=== PATIENT | male | born 1980 | race Caucasian/White ===

== ENCOUNTER → 2019-12-30 | Outpatient (CLI) | payer OTHER ==
[2019-12-30 18:34] LABS: Prolactin 8.3 ng/mL (2.1-17.7)
[2019-12-30 18:35] LABS: Follicle Stimulating Hormone 5.6 mIU/mL; Luteinizing Hormone 9.5 mIU/mL
== END | disposition home or self-care (01) ==
LOC: LABWHC1 09:34
PROVIDERS: ATTEND Urology
DX: E29.1 Testicular hypofunction (principal)
CPT/HCPCS: 36415; 83001; 83002; 84146; 84403

== ENCOUNTER 2024-07-04 17:08 | Observation (INO) | payer OTHER ==
[2024-07-04 17:43] LABS: Glucose,Whole Blood 115 mg/dL (70-110)
[2024-07-04] MEDS: SODIUM CHLORIDE 0.9% 1,000 ML IV STA (17:50)
[2024-07-04 17:52] LABS: Basophils # (A) 0.1 k/uL (0-0.2); Basophils % (A) 0 %; Eosinophils # (A) 0.1 k/uL (0-0.7); Eosinophils % (A) 1 %; HCT 45.7 % (39.0-53.0); HGB 15.3 gm/dL (13.0-17.5); Lymphocytes # (A) 1.6 k/uL (1.0-4.8); Lymphocytes % (A) 11 %; MCH 31.6 pg (25.0-35.0); MCHC 33.5 g/dL (31.0-37.0); MCV 94.2 fL (80.0-100.0); Mean Platelet Volume 7.1; Monocytes # (A) 0.7 k/uL (0-1.0); Monocytes % (A) 5 %; Neutrophils # (A) 11.4 k/uL (1.3-7.7); Neutrophils % (A) 82 %; Platelet Count 363 k/uL (150-450); RBC 4.85 m/uL (4.30-5.90); RDW 13.7 % (11.5-15.5)
--- NOTE | 2024-07-04 17:54 | XR ---
EXAMINATION TYPE: XR shoulder complete RT, XR clavicle RT DATE OF EXAM: 07/04/2024 CLINICAL HISTORY: Trauma with pain TECHNIQUE: Three views of the right shoulder are obtained. 2 views right clavicle. COMPARISON: None. FINDINGS: Acute comminuted displaced fracture through the mid to distal portion of the right clavicle is seen. There is approximately 2.0 cm inferior displacement of the largest distal fracture fragmen t as there are few tiny free ossific fragments also identified. Some impaction is present. Sternoclav icular joint is likely maintained. There is no additional acute fracture/dislocation evident in the r ight shoulder. The acromioclavicular and glenohumeral joint spaces appear within normal limits. The visualized ribs show old fracture of the posterior lateral right sixth rib. There is low lung volume s with patchy right basilar opacity. IMPRESSION: There is acute comminuted displaced fracture through mid to distal portion of the right clavicle. [facility], , 07/04/2024 5:52 PM
[2024-07-04 18:04] LABS: Partial Thromboplastin Time 22.1 sec (22.0-30.0)
--- NOTE | 2024-07-04 18:06 | XR ---
EXAMINATION TYPE: XR chest 1V portable DATE OF EXAM: 07/04/2024 COMPARISON: NONE CLINICAL INDICATION: Male, 44 years old with history of trauma; pain after trauma. TECHNIQUE: Single frontal view of the chest is obtained. FINDINGS: There is no focal air space opacity, pleural effusion, or pneumothorax seen. The cardiac silhouette size is upper limits of normal. Acute comminuted displaced fracture of right clavicle is s een. There is subacute or old fracture of the posterolateral right sixth rib. Overlying EKG leads are present. IMPRESSION: No acute cardiopulmonary process. [facility], , 07/04/2024 6:04 PM
--- NOTE | 2024-07-04 18:06 | XR ---
EXAMINATION TYPE: XR pelvis AP view DATE OF EXAM: 07/04/2024 CLINICAL HISTORY: Trauma TECHNIQUE: 2 portable frontal views of the pelvis are obtained. COMPARISON: None. FINDINGS: There is no acute displaced fracture evident in the pelvis. The hip and sacroiliac joints appear symmetric. Pubic symphysis is intact. The overlying soft tissue appears unremarkable. IMPRESSION: There is no acute fracture or dislocation in the pelvis. [facility], , 07/04/2024 6:03 PM
[2024-07-04 18:11] LABS: ALT 37 U/L (4-49); AST 39 U/L (17-59); African American GFR (CKD) >90 (>60 ml/min/1.73 sqM); Albumin 5.4 g/dL (3.5-5.0); Alcohol <10 mg/dL; Alkaline Phosphatase 74 U/L (38-126); Anion Gap 14 mmol/L; Blood Urea Nitrogen 16 mg/dL (9-20); Carbon Dioxide 23 mmol/L (22-30); Chloride 101 mmol/L (98-107); Glucose 112 mg/dL (74-99); Non-African American GFR(CKD) >90 (>60 ml/min/1.73 sqM); Potassium 4.4 mmol/L (3.5-5.1); Sodium 138 mmol/L (137-145); Total Bilirubin 0.8 mg/dL (0.2-1.3); Total Protein 8.2 g/dL (6.3-8.2)
--- NOTE | 2024-07-04 18:18 | CT ---
EXAMINATION TYPE: CT brain cspine wo con DATE OF EXAM: 07/04/2024 COMPARISON: NONE HISTORY: Priority 2 trauma. Fell 12-15 feet off of ladder. CT DLP: Combined DLP of 2737.9 mGycm. Automated Exposure Control for Dose Reduction was Utilized. TECHNIQUE: CT scan of the head and cervical spine are performed without contrast. FINDINGS: There is no acute intracranial hemorrhage, mass effect, or midline shift identified. The ventricles and sulci are within normal limits in size. Gil-white matter differentiation is maintain ed. The calvarium is intact. The globes are intact and the visualized sinuses are clear. Cervical spine is visualized in its entirety from C1 through upper thoracic levels and demonstrates s atisfactory alignment without evidence of acute fracture or dislocation. Prevertebral soft tissue ap pears within normal limits. The C1-C2 articulation is within normal limits on the coronal images. V ertebral body heights and disc space heights are maintained. Spinal canal is preserved. Axial images show some multilevel uncovertebral facet degenerative changes bilaterally. Thyroid gland appears with in normal limits. Lung apices grossly clear. There is air within the left subclavian vein presumed re lated to attempted IV access posterior to the left proximal clavicle. IMPRESSION: 1. There is no acute fracture or dislocation evident in the cervical spine. 2. No acute intracranial hemorrhage or midline shift is seen. [facility], , 07/04/2024 6:15 PM
--- NOTE | 2024-07-04 18:35 | CT ---
EXAMINATION TYPE: CT ChestAbdPelvis w con, CT thor lumbar spine w con DATE OF EXAM: 07/04/2024 COMPARISON: None. HISTORY: Priority 2 trauma. Fell 12-15 feet off of ladder. CT DLP: Combined DLP of 2737.9 mGycm. Automated Exposure Control for Dose Reduction was Utilized. CONTRAST: CT scan of the thorax, abdomen and pelvis is performed with IV Contrast, patient injected with 100 ml (accession [id number]), 100 ml (accession [id number]) mL of Isovue 300. CT thoracic and lumbar spine wi th contrast. FINDINGS: LUNGS: Minimal right posterior lateral apical pneumothorax axial image 17 with tiny sliver of air. Ti ny focus of 7 mm nodular opacity sagittal image 38 corresponding to axial image 28 and the peripheral right upper lobe. Left lung is clear. Tiny focus of deep subcutaneous air in the right pleural chest wall axial image 27. No adjacent acute displaced rib fracture clearly seen. Old healed fracture of t he posterior lateral right sixth rib is noted. MEDIASTINUM: No cardiomegaly or pericardial effusion. Other: Small subareolar gynecomastia bilaterally is seen. LIVER/GB: No significant abnormality is appreciated. PANCREAS: No significant abnormality is seen. SPLEEN: No significant abnormality is seen. ADRENALS: No significant abnormality is seen. KIDNEYS: Simple central parapelvic cyst in the left kidney is noted. BOWEL: No significant abnormality is seen. GENITAL ORGANS: Upper limits of normal in size prostate gland. LYMPH NODES: No greater than 1cm abdominal or pelvic lymph nodes are appreciated. OSSEOUS STRUCTURES: Acute comminuted displaced fracture through middle to distal portion of the right clavicle. OTHER: No significant additional abnormality is seen. THORACIC AND LUMBAR SPINE: Slight scoliotic curvature in the lumbar spine. There are 5 lumbar-type ve rtebra. No acute displaced fracture in the thoracic or lumbar spine. Vertebral bodies and disc space heights relatively well maintained. Spinal canal is preserved. IMPRESSION: 1. Minimal right-sided pneumothorax estimated at or under 1%. Tiny subcentimeter focus of pulmonary c ontusion injury right peripheral lung. 2. Acute comminuted displaced fracture through the right clavicle. 3. No acute post traumatic finding in the abdomen or pelvis. 4. No acute displaced fracture in the thoracic or lumbar spine. [facility], , 07/04/2024 6:33 PM
[2024-07-04] MEDS: ACETAMINOPHEN TAB 500 MG TAB PO STA (18:55)
[2024-07-04] MEDS ORDERED: NALOXONE 0.4 MG/ML 1 ML VIAL IV PRN (19:26)
[2024-07-04] MEDS ORDERED: ONDANSETRON 4 MG/2 ML VIAL IVP PRN (19:26)
--- NOTE | 2024-07-04 19:29 | ED ---
General Adult HPI - General Chief complaint: Fall Stated complaint: fall, 15 ft Time Seen by Provider: 07/04/24 17:37 Source: patient, RN notes reviewed, old records reviewed Mode of arrival: wheelchair Limitations: physical limitation - History of Present Illness Initial comments: Patient is a 44-year-old male who presents as a level 2 trauma activation. Patient was on a ladder working on a roof when he slipped as it was snowing and fell backwards onto grass. Landed on his right shoulder and right chest wall. Unknown if he lost consciousness, states it is a possibility, although only briefly. States he was able to drive himself home and then was brought to the ER by friends for further evaluation. States fall occurred approximately an hour prior to arrival. Is not on blood thinners. No significant past medical history. Presents for further evaluation at this time. Denies any shortness of breath. Only complaint is right shoulder and clavicle pain. States he has diffuse right chest wall pain as well.Patient fell approximately 12-15 feet. Meets criteria for level 2 trauma activation. - Related Data Home Medications Medication Instructions Recorded Confirmed tadalafiL 5 mg PO DAILY 07/04/24 07/04/24 Allergies Allergy/AdvReac Type Severity Reaction Status Date / Time barley Allergy Unknown Verified 07/04/24 19:31 Review of Systems ROS Statement: Those systems with pertinent positive or pertinent negative responses have been documented in the HPI. Review of Systems: CONST: Denies fever EYES: Denies blurry vision ENT: Denies nasal congestion C/V: Denies Chest pain RESP: Denies shortness of breath GI: Denies abdominal pain : Denies dysuria SKIN: Denies rash. MSK: Endorses right clavicle and shoulder pain. NEURO: Denies headache ROS Other: All systems not noted in ROS Statement are negative. Past Medical History Past Medical History: No Reported History Past Surgical History: No Surgical Hx Reported, Orthopedic Surgery Smoking Status: Never smoker Past Alcohol Use History: Daily, Heavy Past Drug Use History: None Reported General Exam - General Exam Comments Initial Comments: General: Appears in mild to moderate distress secondary to right clavicle pain. HEAD: Normal with no signs of head trauma. Negative Villalba sign. No raccoon eyes. EYES: PERRLA, EOMI, conjunctiva normal, no discharge. Pupils are 3 mm and equal bilaterally. ENT: Hearing grossly intact, normal oropharynx. Cervical collar in place. Trachea is midline. RESPIRATORY: Clear breath sounds bilaterally. No wheezes, rales, or rhonchi. No hypoxia. No respiratory distress. C/V: Regular rate and rhythm. S1 and S2 auscultated, no edema, peripheral pulses 2+ and intact throughout ABD: Abd is soft, nontender, nondistended EXT: Obvious deformity of the right clavicle. Mild skin tenting but no open fracture evidence. No significant midline cervical, thoracic, lumbar spine tenderness to palpation. Palpation of the right chest wall. No obvious deformities of the right chest wall. Right upper quadrant discomfort which seems to be radiation pain from the right chest wall. No significant step-offs or deformities of the spine. Pelvis stable. SKIN: No rashes or lesions observed on exposed skin. NEURO: Alert and oriented x 4. Cranial nerves II-XII intact. No focal sensory or strength deficits. GCS of 15. Limitations: physical limitation Course Vital Signs 07/04/24 07/04/24 07/04/24 17:21 19:55 21:06 Temperature 98.3 F 99.0 F 99.0 F Pulse Rate 74 80 67 Pulse Rate [ Pulse Oximetery ] Respiratory 20 20 18 Rate Blood Pressure 156/94 142/86 143/90 Blood Pressure [Left Arm] O2 Sat by Pulse 97 99 99 Oximetry 07/04/24 21:39 Temperature 97.8 F Pulse Rate Pulse Rate [ 73 Pulse Oximetery ] Respiratory 18 Rate Blood Pressure Blood Pressure 147/94 [Left Arm] O2 Sat by Pulse 100 Oximetry Medical Decision Making - Medical Decision Making Was pt. sent in by a medical professional or institution (, PA, BLOCK STACKER, urgent care, hospital, or detention...) When possible be specific @ -No Did you speak to anyone other than the patient for history (EMS, parent, family, police, friend...)? What history was obtained from this source @ -No Did you review nursing and triage notes (agree or disagree)? Why? @ -I reviewed and agree with nursing and triage notes Were old charts reviewed (outside hosp., previous admission, EMS record, old EKG, old radiological studies, urgent care reports/EKG's, detention records)? Report findings @ -No old charts were reviewed Differential Diagnosis (chest pain, altered mental status, abdominal pain women, abdominal pain men, vaginal bleeding, weakness, fever, dyspnea, syncope, headache, dizziness, GI bleed, back pain, seizure, CVA, palpatations, mental hea lth, musculoskeletal)? @ -Differential Musculoskeletal Muscular strain, contusion, ligament sprain, fracture, arthritis, septic arthritis, bursitis, cellulitis, muscle spasm, nerve compression, DVT, arterial occlusion, herpes zoster, electrolyte abnormality, tumor.... This is not meant to be in all inclusive list EKG interpreted by me (3pts min.). @ -As above X-rays interpreted by me (1pt min.). @ -Chest x-ray reveals no obvious acute cardiopulmonary process. Pelvis x-ray reveals no obvious acute injury. Clavicle and shoulder x-ray reveals the midshaft comminuted displaced right clavicle fracture. CT interpreted by me (1pt min.). @ -CT brain and C-spine negative for any obvious acute injuries. CT thoracic and lumbar spine reveals no obvious acute traumatic injuries. CT chest abdomen pelvis reveals the clavicle fracture, as well as the trace right pneumothorax less than 1% as well as very slight pulmonary contusion on the right. U/S interpreted by me (1pt. min.). @ -None done What testing was considered but not performed or refused? (CT, X-rays, U/S, labs)? Why? @ -None What meds were considered but not given or refused? Why? @ -None Did you discuss the management of the patient with other professionals (professionals i.e. , PA, BLOCK STACKER, lab, RT, psych nurse, social service manager, locker room attendant, teacher, agricultural technical officer, casework manager)? Give summary @ -Discussed management with Dr. Barba, the on-call trauma surgeon who is in agreement plan for workup as well as admission under his service once results return. Contacted [facility], Dr. Barraza regarding medical consult. Was smoking cessation discussed for >3mins.? @ -No Was critical care preformed (if so, how long)? @ -Yes, 31 minutes Were there social determinants of health that impacted care today? How? (Homelessness, low income, unemployed, alcoholism, drug addiction, transportation, low edu. Level, literacy, decrease access to med. care, alf, rehab)? @ -No Was there de-escalation of care discussed even if they declined (Discuss DNR or withdrawal of care, Hospice)? DNR status @ -No What co-morbidities impacted this encounter? (DM, HTN, Smoking, COPD, CAD, Cancer, CVA, ARF, Chemo, Hep., AIDS, mental health diagnosis, sleep apnea, morbid obesity)? @ -None Was patient admitted / discharged? Hospital course, mention meds given and route, prescriptions, significant lab abnormalities, going to OR and other pertinent info. @ -Presents as a fall from 12 to 15 feet off a [facility] followed. Vitals are within acceptable limits. Cervical collar already in place. We will obtain CT imaging, chest x-ray, as well as trauma labs. Patient has no obvious injuries other than the right clavicle fracture that appears apparent. Patient declines analgesia medications but eventually does except Tylenol. Patient will be given a 1 L fluid bolus. He was in agreement this plan. Patient does have skin tenting of the clavicle fracture however he did not break through. Is still closed fracture. Spoke With trauma surgeon Dr. Barba who was in agreement the plan. Laboratory studies returned remarkable for a leukocytosis of 14 which is likely reactive. Remainder the workup unremarkable. Urine studies still pending. X- ray is remarkable for a right clavicle fracture. CT imaging remarkable for the right clavicle fracture as well as a very small right-sided pneumothorax less than 1%. No respiratory distress.No indication for chest tube placement at this time. Discussed results with the patient. Cervical collar cleared. Patient be admitted to trauma surgery. Dr. Barba accepted the admission. Orthopedics will be consulted for the clavicle fracture. Medicine will be consulted for medical management. Patient was placed on nasal cannula oxygen at this time for the pneumothorax but he is in no respiratory distress. Continues to not want IV pain medications and we will continue with Tylenol and Toradol as needed. He was in agreement this plan. Undiagnosed new problem with uncertain prognosis? @ -No Drug Therapy requiring intensive monitoring for toxicity (Heparin, Nitro, Insulin, Cardizem)? @ -No Were any procedures done? @ -No Diagnosis/symptom? @ -Fall, right clavicle fracture, trace pneumothorax Acute, or Chronic, or Acute on Chronic? @ -Acute Uncomplicated (without systemic symptoms) or Complicated (systemic symptoms)? @ -Complicated Side effects of treatment? @ -No Exacerbation, Progression, or Severe Exacerbation? @ -No Poses a threat to life or bodily function? How? (Chest pain, USA, AR, pneumonia, PE, COPD, DKA, ARF, appy, cholecystitis, CVA, Diverticulitis, Homicidal, Suicidal, threat to staff... and all critical care pts) @ -Potentially, yes - Lab Data Result diagrams: 07/04/24 17:37 07/04/24 17:37 Lab Results 07/04/24 07/04/24 07/04/24 Range/Units 17:37 17:37 17:37 WBC 14.0 H (3.8-10.6) k/uL RBC 4.85 (4.30-5.90) m/uL Hgb 15.3 (13.0-17.5) gm/dL Hct 45.7 (39.0-53.0) % MCV 94.2 (80.0-100.0) fL MCH 31.6 (25.0-35.0) pg MCHC 33.5 (31.0-37.0) g/dL RDW 13.7 (11.5-15.5) % Plt Count 363 (150-450) k/uL MPV 7.1 Neutrophils % 82 % Lymphocytes % 11 % Monocytes % 5 % Eosinophils % 1 % Basophils % 0 % Neutrophils # 11.4 H (1.3-7.7) k/uL Lymphocytes # 1.6 (1.0-4.8) k/uL Monocytes # 0.7 (0-1.0) k/uL Eosinophils # 0.1 (0-0.7) k/uL Basophils # 0.1 (0-0.2) k/uL PT 11.0 (10.0-12.5) sec INR 1.0 (<1.2) APTT 22.1 (22.0-30.0) sec Sodium 138 (137-145) mmol/L Potassium 4.4 (3.5-5.1) mmol/L Chloride 101 (98-107) mmol/L Carbon Dioxide 23 (22-30) mmol/L Anion Gap 14 mmol/L BUN 16 (9-20) mg/dL Creatinine 0.74 (0.66-1.25) mg/dL Est GFR (CKD-EPI)AfAm >90 (>60 ml/min/1.73 sqM) Est GFR (CKD-EPI)NonAf >90 (>60 ml/min/1.73 sqM) Glucose 112 H (74-99) mg/dL POC Glucose (mg/dL) (70-110) mg/dL POC Glu Anthropology And Archeology Instructor ID Calcium 10.0 (8.4-10.2) mg/dL Total Bilirubin 0.8 (0.2-1.3) mg/dL AST 39 (17-59) U/L ALT 37 (4-49) U/L Alkaline Phosphatase 74 (38-126) U/L Total Protein 8.2 (6.3-8.2) g/dL Albumin 5.4 H (3.5-5.0) g/dL Serum Alcohol <10 mg/dL Blood Type Blood Type Confirm Blood Type Recheck Bld Type Recheck Status Antibody Screen Spec Expiration Date 07/04/24 07/04/24 07/04/24 Range/Units 17:37 17:42 17:42 WBC (3.8-10.6) k/uL RBC (4.30-5.90) m/uL Hgb (13.0-17.5) gm/dL Hct (39.0-53.0) % MCV (80.0-100.0) fL MCH (25.0-35.0) pg MCHC (31.0-37.0) g/dL RDW (11.5-15.5) % Plt Count (150-450) k/uL MPV Neutrophils % % Lymphocytes % % Monocytes % % Eosinophils % % Basophils % % Neutrophils # (1.3-7.7) k/uL Lymphocytes # (1.0-4.8) k/uL Monocytes # (0-1.0) k/uL Eosinophils # (0-0.7) k/uL Basophils # (0-0.2) k/uL PT (10.0-12.5) sec INR (<1.2) APTT (22.0-30.0) sec Sodium (137-145) mmol/L Potassium (3.5-5.1) mmol/L Chloride (98-107) mmol/L Carbon Dioxide (22-30) mmol/L Anion Gap mmol/L BUN (9-20) mg/dL Creatinine (0.66-1.25) mg/dL Est GFR (CKD-EPI)AfAm (>60 ml/min/1.73 sqM) Est GFR (CKD-EPI)NonAf (>60 ml/min/1.73 sqM) Glucose (74-99) mg/dL POC Glucose (mg/dL) 115 H (70-110) mg/dL POC Glu [employer]ology And Archeology Instructor ID Jack Segura Calcium (8.4-10.2) mg/dL Total Bilirubin (0.2-1.3) mg/dL AST (17-59) U/L ALT (4-49) U/L Alkaline Phosphatase (38-126) U/L Total Protein (6.3-8.2) g/dL Albumin (3.5-5.0) g/dL Serum Alcohol mg/dL Blood Type O Positive Blood Type Confirm O Positive Blood Type Recheck No Previous Record Bld Type Recheck Status CABO Indicated Antibody Screen NEGATIVE Spec Expiration Date 07/07/20242336 - EKG Data -: EKG Interpreted by Me EKG Comments: 12-lead Electrocardiogram Interpretation Note EKG was reviewed and interpreted by myself. 12-lead ECG performed at 1815 is interpreted by me as revealing normal sinus rhythm at a rate of 73 beats per minute. [place] is normal. [place] interval is 176 ms, QRS duration is 104 ms, QTc is 412 ms.. There were no ST or T wave abnormalities to suggest myocardial ischemia or injury. R wave progression across the precordium was satisfactory. By my interpretation this EKG is non-diagnostic for acute ischemia. Critical Care Time Critical Care Time: Yes Total Critical Care Time: 31 Disposition Clinical Impression: Fall, Clavicle fracture, Acute pneumothorax Disposition: ADMITTED IP TO THIS HOSP Condition: Stable Time of Disposition: 19:00
[2024-07-04] MEDS: SODIUM CHLORIDE 0.9% 1,000 ML IV SCH (20:05)
[2024-07-05] MEDS: KETOROLAC 15 MG/ML 1 ML VIAL IVP PRN (00:16)
[2024-07-05 00:26] LABS: Amphetamine Screen,Urine Not Detected (NotDetected); Barbiturate Screen,Urine Not Detected (NotDetected); Benzodiazepines Screen,Urine Not Detected (NotDetected); Cocaine Screen,Urine Not Detected (NotDetected); Methadone Screen, Urine Not Detected (NotDetected); Opiate Screen,Urine Not Detected (NotDetected); Oxycodone Screen, Urine Not Detected (NotDetected); Phencyclidine Screen,Urine Not Detected (NotDetected); Tricyclic Antidepressant,Urine Not Detected (NotDetected); Urn Cannabinoid Scrn Not Detected (NotDetected)
--- NOTE | 2024-07-05 03:37 | P.HPIM ---
History of Present Illness H&P Date: 07/04/24 Patient is a 44-year-old male with PMH of alcohol abuse who presents to the emergency room after a fall. The patient reports that he was working on a house putting up siding when he was on a ladder roughly 15 feet up on the ground when he slipped and fell backwards onto grass. He landed on his right shoulder and right chest and may have lost consciousness. He was brought into the emergency room with imaging revealed a right clavicular displaced fracture along with a minimal right-sided pneumothorax at or under 1%. Head/cervical spine CT was unremarkable. The patient was admitted under the trauma service and medicine was consulted. The patient reports minimal pain at the time of interview. He denies any chronic medical conditions. Does report intermittent heavy alcohol use, mostly in social situations on the weekends. He denies ever being a daily drinker. Notes that he drinks up to 30 beers a week but mostly on 2 to 3 days of the week. He denies experiencing chest discomfort, shortness of breath, fever, chills, cough, nausea, vomiting, abdominal pain, diarrhea. Laboratory evaluation in the emergency room was remarkable for leukocytosis of 14.0, glucose 112, with urine toxicology negative and serum alcohol level less than 10. ED documentation reviewed and case discussed with ED provider. Review of systems: Pertinent positives and negatives as discussed in HPI, a complete review of systems was performed and all other systems are negative. Physical examination: Vital signs reviewed General: non toxic, patient in right arm sling no distress, appears at stated age, normal weight Derm: no unusual rashes/lesions, warm Head: atraumatic, normocephalic, symmetric Eyes: EOMI, no lid lag, anicteric sclera, pupils equal round reactive to light ENT: Nose and ears atraumatic Neck: No cervical lymphadenopathy, trachea midline, supple Mouth: no lip lesion, mucus membranes moist Cardiovascular: S1S2 reg, no murmur, positive dorsalis pedis pulse bilateral, no edema Lungs: CTA bilateral, no rhonchi, no rales, no accessory muscle use Abdominal: soft, nontender to palpation, no guarding Ext: muscle strength 5 out of 5 in all 4 extremities grossly, no gross muscle atrophy, no contractures, Neuro: CN II-XI grossly intact, no gross focal neuro deficits Psych: Alert, oriented, appropriate affect Assessment: Alcohol abuse Leukocytosis, no signs of active infection at this time, likely due to acute stressor Traumatic clavicular fracture Imaging: Imaging revealed a right clavicular displaced fracture along with a minimal right-sided pneumothorax at or under 1%. Head/cervical spine CT was unremarkable. Data Review: Laboratory evaluation in the emergency room was remarkable for leukocytosis of 14.0, glucose 112, with urine toxicology negative and serum alcohol level less than 10. Plan: Continue to monitor CIWA score Advised on importance of cessation from alcohol abuse Monitor CBC C/w IVFs with NS 75 mL/hr Defer management of pain control and DVT prophylaxis to the primary surgery service We appreciate this opportunity to be involved in this patient's care. We will follow the patient with you. For any further questions, please not hesitate to contact the [facility] inpatient team. Past Medical History Past Medical History: No Reported History History of Any Multi-Drug Resistant Organisms: None Reported Past Surgical History: No Surgical Hx Reported, Orthopedic Surgery Additional Past Surgical History / Comment(s): Bone graph, 2 screws in finger, bilateral wrist surgeries years ago. Past Anesthesia/Blood Transfusion Reactions: No Reported Reaction Smoking Status: Never smoker Past Alcohol Use History: Daily, Heavy Past Drug Use History: None Reported - Past Family History Father Family Medical History: Myocardial Infarction ([place]) Additional Family Medical History / Comment(s): Dad had [place] in mid 40s and almost per patient. Medications and Allergies Home Medications Medication Instructions Recorded Confirmed Type tadalafiL 5 mg PO DAILY 07/04/24 07/04/24 History Allergies Allergy/AdvReac Type Severity Reaction Status Date / Time barley Allergy Unknown Verified 07/04/24 19:31 Physical Exam Vitals: Vital Signs Temp Pulse Pulse Resp BP BP Pulse Ox 07/05/24 00:00 98.1 F 66 18 118/64 96 07/04/24 21:39 97.8 F 73 18 147/94 100 07/04/24 21:06 99.0 F 67 18 143/90 99 07/04/24 19:55 99.0 F 80 20 142/86 99 07/04/24 17:21 98.3 F 74 20 156/94 97 Intake and Output 07/04/24 07/04/24 07/05/24 14:59 22:59 06:59 Output Total 400 Balance -400 Output: Urine 400 Other: Voiding Method Toilet # Voids 1 Weight 70.307 kg Results CBC & Chem 7: 07/04/24 17:37 07/04/24 17:37 Labs: Abnormal Lab Results - Last 24 Hours (Table) 07/04/24 07/04/24 07/04/24 Range/Units 17:37 17:37 17:42 WBC 14.0 H (3.8-10.6) k/uL Neutrophils # 11.4 H (1.3-7.7) k/uL Glucose 112 H (74-99) mg/dL POC Glucose (mg/dL) 115 H (70-110) mg/dL Plasma Lactic Acid Isaías (0.7-2.0) mmol/L Albumin 5.4 H (3.5-5.0) g/dL 07/04/24 Range/Units 21:05 WBC (3.8-10.6) k/uL Neutrophils # (1.3-7.7) k/uL Glucose (74-99) mg/dL POC Glucose (mg/dL) (70-110) mg/dL Plasma Lactic Acid Isaías 0.6 L (0.7-2.0) mmol/L Albumin (3.5-5.0) g/dL Thrombosis Risk Factor Assmnt - Choose All That Apply Any of the Below Risk Factors Present?: Yes Each Factor Represents 1 point: Age 41-60 years Other Risk Factors: No Other congenital or acquired thrombophilia - If yes, enter type in comment: No Thrombosis Risk Factor Assessment Total Risk Factor Score: 1 Thrombosis Risk Factor Assessment Level: Low Risk
[2024-07-05] MEDS: ACETAMINOPHEN TAB 325 MG TAB PO PRN (04:30)
[2024-07-05 07:25] LABS: Basophils % (A) 1 %; Eosinophils # (A) 0.1 k/uL (0-0.7); Eosinophils % (A) 1 %; HCT 41.9 % (39.0-53.0); HGB 14.1 gm/dL (13.0-17.5); Lymphocytes # (A) 1.8 k/uL (1.0-4.8); Lymphocytes % (A) 21 %; MCHC 33.7 g/dL (31.0-37.0); MCV 95.1 fL (80.0-100.0); Monocytes # (A) 0.8 k/uL (0-1.0); Monocytes % (A) 9 %; Neutrophils # (A) 5.8 k/uL (1.3-7.7); Neutrophils % (A) 67 %; Platelet Count 293 k/uL (150-450); RBC 4.41 m/uL (4.30-5.90); RDW 13.7 % (11.5-15.5); WBC 8.6 k/uL (3.8-10.6)
[2024-07-05 07:41] LABS: ALT 27 U/L (4-49); AST 25 U/L (17-59); African American GFR (CKD) >90 (>60 ml/min/1.73 sqM); Albumin 4.1 g/dL (3.5-5.0); Alkaline Phosphatase 56 U/L (38-126); Anion Gap 11 mmol/L; Blood Urea Nitrogen 11 mg/dL (9-20); Carbon Dioxide 21 mmol/L (22-30); Chloride 107 mmol/L (98-107); Glucose 87 mg/dL (74-99); Non-African American GFR(CKD) >90 (>60 ml/min/1.73 sqM); Potassium 4.1 mmol/L (3.5-5.1); Sodium 139 mmol/L (137-145); Total Protein 6.3 g/dL (6.3-8.2)
--- NOTE | 2024-07-05 07:42 | XR ---
EXAMINATION TYPE: XR chest 2V DATE OF EXAM: 07/05/2024 6:45 AM COMPARISON: Chest x-ray and CT from one day earlier. CLINICAL INDICATION: Male, 44 years old with history of trace right pneumothorax from trauma, TECHNIQUE: Frontal and lateral views of the chest are obtained. FINDINGS: Trace right-sided pneumothorax on CT not clearly seen on plain film. Lungs remain clear. T he cardiac silhouette size is within normal limits. Old fracture posterior lateral right sixth rib re demonstrated. Acute comminuted displaced fracture of right clavicle again seen. IMPRESSION: As above. [facility], , 07/05/2024 7:39 AM
[2024-07-05] MEDS: THIAMINE 100 MG TAB PO SCH (08:39)
[2024-07-05] MEDS ORDERED: LORazepam 0.5 MG TAB PO PRN (09:16)
[2024-07-05] MEDS ORDERED: LORazepam 2 MG/ML INJ IV PRN ×3 (09:16)
[2024-07-05] MEDS ORDERED: LORazepam 1 MG TAB PO PRN (09:16)
[2024-07-05] MEDS ORDERED: HYDROcodone/APAP 5-325MG 1 EACH TAB PO PRN (09:21)
--- NOTE | 2024-07-05 09:25 | P.PN ---
Subjective Progress Note Date: 07/05/24 Hospital course: Patient is a 44-year-old male with a past medical history of alcohol abuse. He presented to the emergency department on 07/04/2024 secondary to fall. Patient was reportedly working on a house putting up siding when he fell from ladder approximately 15 feet onto the ground. Patient reported landing on his right side injuring his right shoulder and chest and is unsure on whether or not he lost consciousness. Upon arrival to our facility, patient underwent evaluation in the emergency department. Vital signs upon arrival show blood pressure 156/94, heart rate 74, respiratory rate 20, temp 98.3 F, and SpO2 of 97% on room air. CT head negative for acute intracranial process. CT cervical spine showing no acute fracture or dislocation. Chest x-ray negative for acute cardiopulmonary process. Pelvis x-ray negative for acute process. X-ray right shoulder showing acute comminuted displaced fracture throughout the mid to distal portion of the right clavicle. Panoramic CT chest/abdomen/pelvis showing a minimal right-sided pneumothorax estimated at or under 1% with tiny subcentimeter focus of pulmonary contusion to right peripheral lung, acute comminuted displaced fractures of the right clavicle, negative for acute traumatic finding in abdomen or pelvis and no acute displaced fracture of the thoracic or lumbar spine. Labs completed and reviewed. CBC showing leukocytosis with WBC count of 14.0. BMP unremarkable. Liver profile normal findings. Serum alcohol level was less than 10 and urine drug screen was negative. Patient admitted under trauma services and we were consulted for medical management throughout hospitalization. Physical exam: Patient seen and fully evaluated at bedside. Vital signs reviewed and stable. General: Nontoxic, no distress and appears stated age. Derm: Skin warm and dry, normal coloration for ethnicity. Patient with ecchymosis right lateral neck and ecchymosis mild swelling to right clavicular region of right shoulder Head: Atraumatic, normocephalic and symmetric. Eyes: EOM's intact, no lid lag, and anicteric sclera Mouth: no lip lesions, mucus membranes moist Cardiovascular: regular rate and rhythm with normal S1S2, no murmur, positive posterior tibial pulses bilaterally, and cap refill < 2 seconds. Lungs: Respirations even, regular, and unlabored on room air. Lungs CTA bilaterally, no rhonchi, no rales, no wheezing, and no accessory muscle usage. Abdominal: soft, nontender to palpation, no guarding, no appreciable organomega ly Ext: No gross muscle atrophy, no edema, no contractures. Movement and sensation intact. Right arm in sling. Neuro: Speech clear, face symmetrical and CN II-XII grossly intact with no noted focal neuro deficits Psych: Alert and oriented to person, place, time, and situation. Appropriate and pleasant affect. Assessment and Plan of Care: Traumatic fall Right sided displaced clavicular fracture -Admitted under trauma surgery team -Orthopedic surgery consulted for comminuted displaced right clavicular fracture, discussed with orthopedic PA stating plans for surgical intervention on Sunday -Neurochecks every 4 hours secondary to unclear loss of consciousness -Symptomatic care and pain management Pulmonary contusion Small < 1% right sided pneumothorax -Consult placed to pulmonology. -Monitor pulse oximetry -Encourage use of incentive spirometer 10-15 times hourly while awake. Alcohol abuse, binge drinking behaviors -Order placed for monitoring of CIWA scores and patient to be medicated with Ativan 0.5 mg every 4 hours as needed for CIWA score of 4-5, Ativan 1 mg every 4 hours for CIWA score of 6-7, Ativan 2 mg every 3 hours CIWA score of 8-9, and Ativan 2 mg every 2 hours forr CIWA score of 10 or greater. -Continuous IV hydration. -Thiamine 100 mg daily, and Multivitamin daily, and Folate 1 mg daily -Seizure, fall, aspiration, and elopement precautions in place. -Urine drug screen was negative -Continued close monitoring of electrolytes and replace as needed. -Telemetry monitoring. Data and imaging reviewed: -CT head negative for acute intracranial process. -CT cervical spine showing no acute fracture or dislocation. -Chest x-ray negative for acute cardiopulmonary process. -Pelvis x-ray negative for acute process. -X-ray right shoulder showing acute comminuted displaced fracture throughout the mid to distal portion of the right clavicle. -Panoramic CT chest/abdomen/pelvis showing a minimal right-sided pneumothorax estimated at or under 1% with tiny subcentimeter focus of pulmonary contusion to right peripheral lung, acute comminuted displaced fractures of the right clavicle, negative for acute traumatic finding in abdomen or pelvis and no acute displaced fracture of the thoracic or lumbar spine. -Labs completed and reviewed. CBC unremarkable with WBC count of 8.6, hemoglobin of 14.1, and platelet count of 293. BMP showing mild hypocarbia with bicarb of 21 otherwise normal findings. Blood glucose 87. Liver profile unremarkable. -Vital signs reviewed. Blood pressure 130/78, heart rate 73, respiratory rate 15, temp 98.2 F, and SpO2 of 97% on room air. Thank you for allowing us to participate in the care of this pleasant patient. Do not hesitate to contact us with questions. Someone can be reached from the [facility] hospitalist group all hours of the day at [phone] or via e-Tag. Patient was seen independently by Nurse Pracitioner. This document was prepared using [employer] dictation software. Please allow for errors in staking press operator, while rare they do occur. Luis E Galvan NP rendered care for this patient independently, reviewed the findings and plan as documented in the note above and agree with plan. I did not physically speak with or examine the patient on this date. Objective - Vital Signs Vital signs: Vital Signs Temp 98.2 F 07/05/24 04:00 Pulse 73 07/05/24 04:00 Resp 15 07/05/24 04:00 BP 130/78 07/05/24 04:00 Pulse Ox 97 07/05/24 04:00 FiO2 Intake & Output 07/04/24 07/05/24 07/05/24 18:59 06:59 18:59 Intake Total 1440 Output Total 400 Balance 1040 Weight 70.307 kg 73.8 kg Intake: Intake, IV Titration 900 Amount Sodium Chloride 0.9% 1, 900 000 ml @ 75 mls/hr IV . [id number] ALVARADO Rx#:[id number] Oral 540 Output: Urine 400 Other: Voiding Method Toilet # Voids 1 - Labs CBC & Chem 7: 07/05/24 06:49 07/05/24 06:49 Labs: Abnormal Lab Results - Last 24 Hours (Table) 07/04/24 07/04/24 07/04/24 Range/Units 17:37 17:37 17:42 WBC 14.0 H (3.8-10.6) k/uL Neutrophils # 11.4 H (1.3-7.7) k/uL Carbon Dioxide (22-30) mmol/L Glucose 112 H (74-99) mg/dL POC Glucose (mg/dL) 115 H (70-110) mg/dL Plasma Lactic Acid Isaías (0.7-2.0) mmol/L Albumin 5.4 H (3.5-5.0) g/dL 07/04/24 07/05/24 Range/Units 21:05 06:49 WBC (3.8-10.6) k/uL Neutrophils # (1.3-7.7) k/uL Carbon Dioxide 21 L (22-30) mmol/L Glucose (74-99) mg/dL POC Glucose (mg/dL) (70-110) mg/dL Plasma Lactic Acid Isaías 0.6 L (0.7-2.0) mmol/L Albumin (3.5-5.0) g/dL
[2024-07-05] MEDS: NON FORMULARY DRUG (Tadalafil [Tadalafil] 5 MG Tablet) PO SCH (10:22)
--- NOTE | 2024-07-05 10:38 | P.CNOR ---
History of Present Illness - [facility] Consult date: 07/05/24 Consult reason: fracture (Right clavicle) History of present illness: Patient is a 44-year-old male who presented as a level 2 trauma activation. Patient was on a ladder working on a roof when he slipped as it was snowing and fell backwards onto grass. Landed on his right shoulder and right chest wall. Unknown if he lost consciousness, states it is a possibility, although only briefly. States he was able to drive himself home and then was brought to the ER by friends for further evaluation. States fall occurred approximately an hour prior to arrival. Is not on blood thinners. No significant past medical history. Presents for further evaluation at this time. Denies any shortness of breath. Only complaint is right shoulder and clavicle pain. States he has diffuse right chest wall pain as well.Patient fell approximately 12-15 feet. Meets criteria for level 2 trauma activation. The patient is self-employed. He is currently complaining of no other orthopedic injuries. He has had no neck, back, other upper or lower extremity pain aside from the right shoulder. We are consulted for orthopedic evaluation of the right clavicle fracture. Past Medical History Past Medical History: No Reported History History of Any Multi-Drug Resistant Organisms: None Reported Past Surgical History: No Surgical Hx Reported, Orthopedic Surgery Additional Past Surgical History / Comment(s): Bone graph, 2 screws in finger, bilateral wrist surgeries years ago. Past Anesthesia/Blood Transfusion Reactions: No Reported Reaction Smoking Status: Never smoker Past Alcohol Use History: Daily, Heavy Past Drug Use History: None Reported - Past Family History Father Family Medical History: Myocardial Infarction ([place]) Additional Family Medical History / Comment(s): Dad had [place] in mid 40s and almost per patient. Medications and Allergies Home Medications Medication Instructions Recorded Confirmed Type tadalafiL 5 mg PO DAILY 07/04/24 07/04/24 History Allergies Allergy/AdvReac Type Severity Reaction Status Date / Time barley Allergy Unknown Verified 07/04/24 19:31 Physical Examination This is a pleasant 44-year-old male in no acute distress. He is alert and oriented x 3. Exam of the head neck revealed no deformity. He has full cervical spine motion without difficulty or pain. No tenderness with palpation about the cervical spine or paraspinal musculature. Exam the upper extremities reveals ecchymosis and very slight skin tenting about the clavicle on the right. There are no areas of puncture or skin breakdown. No areas of erythema. There is tenderness to palpation about the clavicle. Range of motion of the right shoulder is not tested today. He has full elbow, wrist and finger motion bilaterally. Exam of the chest shows some tenderness about the right sided chest wall. His chest seems to expand symmetrically with respirations. Exam of the lower extremities reveals no obvious deformity. He is up ambulating independently without difficulty or pain. Neurovascular status to the lower extremities is intact. Results X-rays and CT of the right clavicle reveal a comminuted displaced fracture of the midshaft clavicle. No other bony abnormalities noted. Other diagnostic imaging: -CT head negative for acute intracranial process. -CT cervical spine showing no acute fracture or dislocation. -Chest x-ray negative for acute cardiopulmonary process. -Pelvis x-ray negative for acute process. -Panoramic CT chest/abdomen/pelvis showing a minimal right-sided pneumothorax estimated at or under 1% with tiny subcentimeter focus of pulmonary contusion to right peripheral lung, acute comminuted displaced fractures of the right clavicle, negative for acute traumatic finding in abdomen or pelvis and no acute displaced fracture of the thoracic or lumbar spine. -Labs completed and reviewed. CBC unremarkable with WBC count of 8.6, hemoglobin of 14.1, and platelet count of 293. BMP showing mild hypocarbia with bicarb of 21 otherwise normal findings. Blood glucose 87. Liver profile unrema rkable. -Vital signs reviewed. Blood pressure 130/78, heart rate 73, respiratory rate 15, temp 98.2 F, and SpO2 of 97% on room air. - Labs Labs: Abnormal Lab Results - Last 24 Hours (Table) 07/04/24 07/04/24 07/04/24 Range/Units 17:37 17:37 17:42 WBC 14.0 H (3.8-10.6) k/uL Neutrophils # 11.4 H (1.3-7.7) k/uL Carbon Dioxide (22-30) mmol/L Glucose 112 H (74-99) mg/dL POC Glucose (mg/dL) 115 H (70-110) mg/dL Plasma Lactic Acid Isaías (0.7-2.0) mmol/L Albumin 5.4 H (3.5-5.0) g/dL 07/04/24 07/05/24 Range/Units 21:05 06:49 WBC (3.8-10.6) k/uL Neutrophils # (1.3-7.7) k/uL Carbon Dioxide 21 L (22-30) mmol/L Glucose (74-99) mg/dL POC Glucose (mg/dL) (70-110) mg/dL Plasma Lactic Acid Isaías 0.6 L (0.7-2.0) mmol/L Albumin (3.5-5.0) g/dL H & H 07/04/24 07/05/24 Range/Units 17:37 06:49 Hgb 15.3 14.1 (13.0-17.5) gm/dL Hct 45.7 41.9 (39.0-53.0) % Coagulation 07/04/24 Range/Units 17:37 INR 1.0 (<1.2) Result Diagrams: 07/05/24 06:49 07/05/24 06:49 Assessment and Plan (1) Acute pneumothorax Current Visit: Yes Status: Acute Code(s): J93.83 - OTHER PNEUMOTHORAX SNOMED Code(s): 00223063 (2) Clavicle fracture Current Visit: Yes Status: Acute Code(s): S42.009A - FRACTURE OF UNSP PART OF UNSP CLAVICLE, INIT FOR CLOS FX SNOMED Code(s): 25060540 (3) Fall Current Visit: Yes Status: Acute Code(s): W19.XXXA - UNSPECIFIED FALL, INITIAL ENCOUNTER SNOMED Code(s): 0799598 Plan: The clinical and radiographic findings are discussed with the patient. We discussed surgical fixation of the right clavicle. The patient may possibly be discharged to home. If he is discharged he will need to follow-up in our office on Sunday with Dr. Mauricio Ny for surgical scheduling. If the patient remains inpatient we will plan for surgery on Sunday for open reduction internal fixation of the right clavicle. We will continue to follow throughout his inpatient stay.
--- NOTE | 2024-07-05 12:49 | P.GSHP ---
History of Present Illness H&P Date: 07/04/24 Patient is a 44-year-old male who presents as a level 2 trauma activation. Patient was on a ladder working on a roof when he slipped as it was snowing and fell backwards onto grass. Landed on his right shoulder and right chest wall. Unknown if he lost consciousness, states it is a possibility, although only briefly. States he was able to drive himself home and then was brought to the ER by friends for further evaluation. States fall occurred approximately an hour prior to arrival. Is not on blood thinners. No significant past medical history. Presents for further evaluation at this time. Denies any shortness of breath. Only complaint is right shoulder and clavicle pain. States he has diffuse right chest wall pain as well.Patient fell approximately 12-15 feet. Meets criteria for level 2 trauma activation. Imaging revealed clavicle fracture and small right sided pneumothorax. Patient is not having any respiratory distress. Review of Systems ROS Statement: Those systems with pertinent positive or pertinent negative responses have been documented in the HPI. Review of Systems: CONST: Denies fever EYES: Denies blurry vision ENT: Denies nasal congestion C/V: Denies Chest pain RESP: Denies shortness of breath GI: Denies abdominal pain : Denies dysuria SKIN: Denies rash. MSK: Endorses right clavicle and shoulder pain. NEURO: Denies headache ROS Other: All systems not noted in ROS Statement are negative. Past Medical History Past Medical History: No Reported History Past Surgical History: No Surgical Hx Reported, Orthopedic Surgery Smoking Status: Never smoker Past Alcohol Use History: Daily, Heavy Past Drug Use History: None Reported General Exam General: Appears in mild to moderate distress secondary to right clavicle pain. HEAD: Normal with no signs of head trauma. Negative Villalba sign. No raccoon eyes. EYES: PERRLA, EOMI, conjunctiva normal, no discharge. Pupils are 3 mm and equal bilaterally. ENT: Hearing grossly intact, normal oropharynx. Cervical collar in place. Trachea is midline. RESPIRATORY: Clear breath sounds bilaterally. No wheezes, rales, or rhonchi. No hypoxia. No respiratory distress. C/V: Regular rate and rhythm. S1 and S2 auscultated, no edema, peripheral pulses 2+ and intact throughout ABD: Abd is soft, nontender, nondistended EXT: Obvious deformity of the right clavicle. Mild skin tenting but no open fracture evidence. No significant midline cervical, thoracic, lumbar spine tenderness to palpation. Palpation of the right chest wall. No obvious deformities of the right chest wall. Right upper quadrant discomfort which seems to be radiation pain from the right chest wall. No significant step-offs or deformities of the spine. Pelvis stable. SKIN: No rashes or lesions observed on exposed skin. NEURO: Alert and oriented x 4. Cranial nerves II-XII intact. No focal sensory or strength deficits. GCS of 15. 44 year old male with fall and clavicle fracture and small right sided PTX -imaging reviewed -Admit to Trauma -Regular Diet -AM CXR -Ortho recs -Medicine recs for medical management -Pulm recs for possible pulmonary contusion -Pain Control Casey Barba [facility] [phone] Past Medical History Past Medical History: No Reported History History of Any Multi-Drug Resistant Organisms: None Reported Past Surgical History: No Surgical Hx Reported, Orthopedic Surgery Additional Past Surgical History / Comment(s): Bone graph, 2 screws in finger, bilateral wrist surgeries years ago. Past Anesthesia/Blood Transfusion Reactions: No Reported Reaction Smoking Status: Never smoker Past Alcohol Use History: Daily, Heavy Past Drug Use History: None Reported - Past Family History Father Family Medical History: Myocardial Infarction ([place]) Additional Family Medical History / Comment(s): Dad had [place] in mid 40s and almost per patient. Medications and Allergies Home Medications Medication Instructions Recorded Confirmed Type tadalafiL 5 mg PO DAILY 07/04/24 07/04/24 History Allergies Allergy/AdvReac Type Severity Reaction Status Date / Time barley Allergy Unknown Verified 07/04/24 19:31 Surgical - Exam Vital Signs Temp Pulse Resp BP Pulse Ox 98.3 F 74 20 156/94 97 07/04/24 17:21 07/04/24 17:21 07/04/24 17:21 07/04/24 17:21 07/04/24 17:21 Results - Labs 07/05/24 06:49 07/05/24 06:49 Abnormal Lab Results - Last 24 Hours (Table) 07/04/24 07/04/24 07/04/24 Range/Units 17:37 17:37 17:42 WBC 14.0 H (3.8-10.6) k/uL Neutrophils # 11.4 H (1.3-7.7) k/uL Carbon Dioxide (22-30) mmol/L Glucose 112 H (74-99) mg/dL POC Glucose (mg/dL) 115 H (70-110) mg/dL Plasma Lactic Acid Isaías (0.7-2.0) mmol/L Albumin 5.4 H (3.5-5.0) g/dL 07/04/24 07/05/24 Range/Units 21:05 06:49 WBC (3.8-10.6) k/uL Neutrophils # (1.3-7.7) k/uL Carbon Dioxide 21 L (22-30) mmol/L Glucose (74-99) mg/dL POC Glucose (mg/dL) (70-110) mg/dL Plasma Lactic Acid Isaías 0.6 L (0.7-2.0) mmol/L Albumin (3.5-5.0) g/dL Diabetes panel 07/04/24 07/05/24 Range/Units 17:37 06:49 Sodium 138 139 (137-145) mmol/L Potassium 4.4 4.1 (3.5-5.1) mmol/L Chloride 101 107 (98-107) mmol/L Carbon Dioxide 23 21 L (22-30) mmol/L BUN 16 11 (9-20) mg/dL Creatinine 0.74 0.66 (0.66-1.25) mg/dL Glucose 112 H 87 (74-99) mg/dL Calcium 10.0 9.0 (8.4-10.2) mg/dL AST 39 25 (17-59) U/L ALT 37 27 (4-49) U/L Alkaline Phosphatase 74 56 (38-126) U/L Total Protein 8.2 6.3 (6.3-8.2) g/dL Albumin 5.4 H 4.1 (3.5-5.0) g/dL Calcium panel 07/04/24 07/05/24 Range/Units 17:37 06:49 Calcium 10.0 9.0 (8.4-10.2) mg/dL Albumin 5.4 H 4.1 (3.5-5.0) g/dL Pituitary panel 07/04/24 07/05/24 Range/Units 17:37 06:49 Sodium 138 139 (137-145) mmol/L Potassium 4.4 4.1 (3.5-5.1) mmol/L Chloride 101 107 (98-107) mmol/L Carbon Dioxide 23 21 L (22-30) mmol/L BUN 16 11 (9-20) mg/dL Creatinine 0.74 0.66 (0.66-1.25) mg/dL Glucose 112 H 87 (74-99) mg/dL Calcium 10.0 9.0 (8.4-10.2) mg/dL Adrenal panel 07/04/24 07/05/24 Range/Units 17:37 06:49 Sodium 138 139 (137-145) mmol/L Potassium 4.4 4.1 (3.5-5.1) mmol/L Chloride 101 107 (98-107) mmol/L Carbon Dioxide 23 21 L (22-30) mmol/L BUN 16 11 (9-20) mg/dL Creatinine 0.74 0.66 (0.66-1.25) mg/dL Glucose 112 H 87 (74-99) mg/dL Calcium 10.0 9.0 (8.4-10.2) mg/dL Total Bilirubin 0.8 1.0 (0.2-1.3) mg/dL AST 39 25 (17-59) U/L ALT 37 27 (4-49) U/L Alkaline Phosphatase 74 56 (38-126) U/L Total Protein 8.2 6.3 (6.3-8.2) g/dL Albumin 5.4 H 4.1 (3.5-5.0) g/dL
--- NOTE | 2024-07-05 13:02 | P.CNPUL ---
History of Present Illness Consult date: 07/05/24 Requesting physician: Casey Barba Reason for consult: pneumothorax, abnormal CXR/CT, other Chief complaint: Status post fall. History of present illness: Pulmonary consult dated July 05, 2024. 44-year-old male who presented to the emergency department, suffering a fall. The patient apparently was up on a ladder, 10 or 15 feet up, and fell, landing on his back, on the grass. He landed on his right shoulder, and right chest. It is not clear as to whether or not he lost consciousness. He was able to drive himself home, and then was brought to the ER by one of his friends. The patient was evaluated, with multiple x-rays, was found to have a right clavicle fracture, and a very tiny right-sided pneumothorax. The rest of his x-rays were negative. We were asked to see him because of the trauma. He is on room air. He is getting saline at 75 cc an hour. He is being followed by general surgery. He apparently is scheduled to have surgery on his clavicle, next Sunday. He has no major medical problems. The only medication he takes at home is tadalafil. Labs include a white count 8.6, hemoglobin 14.1, hematocrit 41.9, and a platelet count of 293,000. Sodium 139, potassium 4.1, chlorides 107, CO2 21, BUN 11, creatinine 0.66. Glucose 87. The rest of his labs look okay. Drug screen was negative. Alcohol level was less than 10. The patient CT scan shows a very tiny 1 to 2% right apical pneumothorax. Review of Systems REVIEW OF SYSTEMS: CONSTITUTIONAL: [Negative.] NEUROLOGIC: [ Negative.] HEENT: [ Negative.] CARDIAC: [Negative.] PULMONARY: [Negative.] GI: [Negative.] : [Negative.] RHEUMATOLOGIC: Right shoulder pain. IMMUNOLOGIC: [ Negative.] ENDOCRINE: [Negative. ] DERMATOLOGIC: [Negative.] Past Medical History Past Medical History: No Reported History History of Any Multi-Drug Resistant Organisms: None Reported Past Surgical History: No Surgical Hx Reported, Orthopedic Surgery Additional Past Surgical History / Comment(s): Bone graph, 2 screws in finger, bilateral wrist surgeries years ago. Past Anesthesia/Blood Transfusion Reactions: No Reported Reaction Smoking Status: Never smoker Past Alcohol Use History: Daily, Heavy Past Drug Use History: None Reported - Past Family History Father Family Medical History: Myocardial Infarction ([place]) Additional Family Medical History / Comment(s): Dad had [place] in mid 40s and almost per patient. Medications and Allergies Home Medications Medication Instructions Recorded Confirmed Type tadalafiL 5 mg PO DAILY 07/04/24 07/04/24 History Allergies Allergy/AdvReac Type Severity Reaction Status Date / Time barley Allergy Unknown Verified 07/04/24 19:31 Physical Exam Osteopathic Statement: *. No significant issues noted on an osteopathic st ructural exam other than those noted in the History and Physical/Consult. Vitals: Vital Signs Temp Pulse Pulse Pulse Resp BP BP 07/05/24 08:35 98.1 F 68 16 116/74 07/05/24 04:00 98.2 F 73 15 130/78 07/05/24 00:00 98.1 F 66 18 118/64 07/04/24 21:39 97.8 F 73 18 147/94 07/04/24 21:06 99.0 F 67 18 143/90 07/04/24 19:55 99.0 F 80 20 142/86 07/04/24 17:21 98.3 F 74 20 156/94 Pulse Ox 07/05/24 08:35 96 07/05/24 04:00 97 07/05/24 00:00 96 07/04/24 21:39 100 07/04/24 21:06 99 07/04/24 19:55 99 07/04/24 17:21 97 Intake and Output 07/04/24 07/05/24 07/05/24 22:59 06:59 14:59 Intake Total 1440 180 Output Total 400 Balance 1040 180 Intake: Intake, IV Titration 900 Amount Sodium Chloride 0.9% 1, 900 000 ml @ 75 mls/hr IV . [id number] [facility] Rx#:[id number] Oral 540 180 Output: Urine 400 Other: Voiding Method Toilet Toilet # Voids 1 Weight 70.307 kg 73.8 kg No acute distress, oriented 3. Currently not on any oxygen. HEENT examination is grossly unremarkable. Mucous membranes are moist. No oral lesions. Neck supple. Full range of motion. No adenopathy thyromegaly or neck vein distention. Cardiovascular examination reveals regular rhythm rate. S1-S2 normal. No S3 or S4. No discernible murmur noted. Lungs reveal clear breath sounds. Breath sounds are equal bilaterally. No adventitious lung sounds including wheezes rhonchi or crackles. Abdomen soft bowel sounds are heard. No masses or tenderness. Extremities revealed the right arm to be in a sling. Skin is without rash or lesion. Neurologic examination is brief but nonfocal. Results - Laboratory Findings CBC and BMP: 07/05/24 06:49 07/05/24 06:49 PT/INR, D-dimer PT 11.0 sec (10.0-12.5) 07/04/24 17:37 INR 1.0 (<1.2) 07/04/24 17:37 Abnormal lab findings: Abnormal Labs 07/04/24 07/04/24 07/04/24 17:37 17:37 17:42 WBC 14.0 H Neutrophils # 11.4 H Carbon Dioxide Glucose 112 H POC Glucose (mg/dL) 115 H Plasma Lactic Acid Isaías Albumin 5.4 H 07/04/24 07/05/24 21:05 06:49 WBC Neutrophils # Carbon Dioxide 21 L Glucose POC Glucose (mg/dL) Plasma Lactic Acid Isaías 0.6 L Albumin - Diagnostic Findings Chest x-ray: image reviewed CT scan - chest: image reviewed Assessment and Plan Assessment: S/P fall, with a fractured right clavicle, possible pulmonary contusion, and a very tiny right sided pneumothorax. No other major medical problems. Plan: Plan dated July 05, 2024. The patient apparently is going to have surgery, on his right clavicle, on Sunday. From the pulmonary standpoint, he is stable. He is a non-smoker. He denies any pulmonary issues. He is currently on room air. Saturations are excellent. The CT scan reveals a very tiny right apical pneumothorax. He is ge tting saline at 75 cc an hour. Labs, x-rays, and all medications are reviewed. We do recommend that the patient use the incentive spirometer, every hour while awake. We will continue to follow. Time with Patient: Greater than 30
--- NOTE | 2024-07-06 00:39 | P.PN ---
Progress Note - Text Progress Note Date: 07/05/24 No acute events overnight. Patient denies chest pain and SOB. Pain is controlled. General: Appears in mild to moderate distress secondary to right clavicle pain. HEAD: Normal with no signs of head trauma. Negative Villalba sign. No raccoon eyes. EYES: PERRLA, EOMI, conjunctiva normal, no discharge. Pupils are 3 mm and equal bilaterally. ENT: Hearing grossly intact, normal oropharynx. Cervical collar in place. Trachea is midline. RESPIRATORY: Clear breath sounds bilaterally. No wheezes, rales, or rhonchi. No hypoxia. No respiratory distress. C/V: Regular rate and rhythm. S1 and S2 auscultated, no edema, peripheral pulses 2+ and intact throughout ABD: Abd is soft, nontender, nondistended EXT: Obvious deformity of the right clavicle. Mild skin tenting but no open fracture evidence. No significant midline cervical, thoracic, lumbar spine tenderness to palpation. Palpation of the right chest wall. No obvious deformities of the right chest wall. Right upper quadrant discomfort which seems to be radiation pain from the right chest wall. No significant step-offs or deformities of the spine. Pelvis stable. SKIN: No rashes or lesions observed on exposed skin. NEURO: Alert and oriented x 4. Cranial nerves II-XII intact. No focal sensory or strength deficits. GCS of 15. 44 year old male with fall and clavicle fracture and small right sided PTX -Regular Diet -AM CXR reviewed which shows trace PTX -Ortho recs -AM CXR ordered -Medicine recs for medical management -Pulm recs for possible pulmonary contusion -Pain Control Casey Barba DO [facility] [phone]
[2024-07-06 07:26] LABS: Basophils % (A) 0 %; Eosinophils # (A) 0.1 k/uL (0-0.7); Eosinophils % (A) 2 %; HCT 39.6 % (39.0-53.0); HGB 13.4 gm/dL (13.0-17.5); Lymphocytes # (A) 1.7 k/uL (1.0-4.8); Lymphocytes % (A) 22 %; MCH 32.1 pg (25.0-35.0); MCHC 33.8 g/dL (31.0-37.0); MCV 95.1 fL (80.0-100.0); Monocytes # (A) 0.8 k/uL (0-1.0); Monocytes % (A) 11 %; Neutrophils # (A) 4.8 k/uL (1.3-7.7); Neutrophils % (A) 63 %; Platelet Count 267 k/uL (150-450); RBC 4.17 m/uL (4.30-5.90); RDW 13.1 % (11.5-15.5); WBC 7.6 k/uL (3.8-10.6)
--- NOTE | 2024-07-06 07:26 | XR ---
EXAMINATION TYPE: XR chest 2V DATE OF EXAM: 07/06/2024 CLINICAL HISTORY: Pneumothorax TECHNIQUE: Frontal and lateral views of the chest are obtained. COMPARISON: Chest x-ray from one day earlier and older studies. FINDINGS: Lungs remain grossly clear. The cardiac silhouette size is stable and within normal limits. Old fracture posterior lateral right sixth rib redemonstrated. Acute comminuted displaced fracture o f right clavicle again seen. IMPRESSION: As above. Trace right-sided pneumothorax on CT not clearly seen on plain films similar t o prior. [facility], , 07/06/2024 7:24 AM
[2024-07-06 07:51] LABS: ALT 23 U/L (4-49); AST 18 U/L (17-59); African American GFR (CKD) >90 (>60 ml/min/1.73 sqM); Albumin 3.9 g/dL (3.5-5.0); Alkaline Phosphatase 50 U/L (38-126); Anion Gap 5 mmol/L; Blood Urea Nitrogen 11 mg/dL (9-20); Calcium 9.1 mg/dL (8.4-10.2); Carbon Dioxide 26 mmol/L (22-30); Chloride 108 mmol/L (98-107); Glucose 97 mg/dL (74-99); Magnesium 2.1 mg/dL (1.6-2.3); Non-African American GFR(CKD) >90 (>60 ml/min/1.73 sqM); Potassium 4.2 mmol/L (3.5-5.1); Sodium 139 mmol/L (137-145); Total Bilirubin 0.8 mg/dL (0.2-1.3); Total Protein 6.1 g/dL (6.3-8.2)
[2024-07-06] MEDS: FOLIC ACID 1 MG TAB PO SCH (09:29)
[2024-07-06] MEDS: MULTIVITAMINS, THERA 1 EACH TAB PO SCH (09:29)
--- NOTE | 2024-07-06 09:40 | P.PN ---
Subjective Progress Note Date: 07/06/24 Principal diagnosis: Status post fall 12 to 15 feet. Comminuted right clavicle fracture. Small pneumothorax right. Possible pulmonary contusion. Patient is a 44-year-old male who presented as a level 2 trauma activation. Patient was on a ladder working on a roof when he slipped as it was snowing and fell backwards onto grass. Landed on his right shoulder and right chest wall. Unknown if he lost consciousness, states it is a possibility, although only briefly. States he was able to drive himself home and then was brought to the ER by friends for further evaluation. States fall occurred approximately an hour prior to arrival. Is not on blood thinners. No significant past medical history. Presents for further evaluation at this time. Denies any shortness of breath. Only complaint is right shoulder and clavicle pain. States he has diffuse right chest wall pain as well.Patient fell approximately 12-15 feet. Meets criteria for level 2 trauma activation. The patient is self-employed. He is currently complaining of no other orthopedic injuries. He has had no neck, back, other upper or lower extremity pain aside from the right shoulder. We are consulted for orthopedic evaluation of the right clavicle fracture. 07/06/2024: The patient has no new complaints or concerns today. His pain is fairly well-managed. He has maintained the sling. Objective - Vital Signs Vital signs: Vital Signs Temp 98.1 F 07/06/24 04:00 Pulse 64 07/06/24 04:00 Resp 18 07/06/24 04:00 BP 121/74 07/06/24 04:00 Pulse Ox 98 07/06/24 04:00 FiO2 Intake & Output 07/05/24 07/06/24 07/06/24 18:59 06:59 18:59 Intake Total 360 Balance 360 Weight 73.3 kg Intake: Oral 360 Other: Voiding Method Toilet Toilet # Voids 2 2 - Exam Arm sling is in place. There is less skin tenting today over the fracture. There is mild ecchymosis to the region of the clavicle. No open wounds noted. Shoulder range of motion not tested today. Full wrist and finger motion without difficulty or pain. Neurovascular status to the upper extremity is intact. - Labs CBC & Chem 7: 07/06/24 07:03 07/06/24 07:03 Labs: Abnormal Lab Results - Last 24 Hours (Table) 07/06/24 07/06/24 Range/Units 07:03 07:03 RBC 4.17 L (4.30-5.90) m/uL Chloride 108 H (98-107) mmol/L Total Protein 6.1 L (6.3-8.2) g/dL Assessment and Plan (1) Acute pneumothorax Current Visit: Yes Status: Acute Code(s): J93.83 - OTHER PNEUMOTHORAX SNOMED Code(s): 48187019 (2) Clavicle fracture Current Visit: Yes Status: Acute Code(s): S42.009A - FRACTURE OF UNSP PART OF UNSP CLAVICLE, INIT FOR CLOS FX SNOMED Code(s): 49305781 (3) Fall Current Visit: Yes Status: Acute Code(s): W19.XXXA - UNSPECIFIED FALL, INITIAL ENCOUNTER SNOMED Code(s): 9522023 Plan: The clinical and radiographic findings are discussed with the patient. We discussed surgical fixation of the right clavicle. The patient may possibly be discharged to home. If he is discharged he will need to follow-up in our office on Sunday with Dr. Mauricio Ny for surgical scheduling. If the patient remains inpatient we will plan for surgery on Sunday for open reduction internal fixation of the right clavicle. We will continue to follow throughout his inpatient stay.
--- NOTE | 2024-07-06 12:28 | P.PN ---
Subjective Progress Note Date: 07/06/24 Principal diagnosis: Status post fall. Pulmonary consult dated July 05, 2024. 44-year-old male who presented to the emergency department, suffering a fall. The patient apparently was up on a ladder, 10 or 15 feet up, and fell, landing on his back, on the grass. He landed on his right shoulder, and right chest. It is not clear as to whether or not he lost consciousness. He was able to drive himself home, and then was brought to the ER by one of his friends. The patient was evaluated, with multiple x-rays, was found to have a right clavicle fracture, and a very tiny right-sided pneumothorax. The rest of his x-rays were negative. We were asked to see him because of the trauma. He is on room air. He is getting saline at 75 cc an hour. He is being followed by general surgery. He apparently is scheduled to have surgery on his clavicle, next Sunday. He has no major medical problems. The only medication he takes at home is tadalafil. Labs include a white count 8.6, hemoglobin 14.1, hematocrit 41.9, and a platelet count of 293,000. Sodium 139, potassium 4.1, chlorides 107, CO2 21, BUN 11, creatinine 0.66. Glucose 87. The rest of his labs look okay. Drug screen was negative. Alcohol level was less than 10. The patient CT scan shows a very tiny 1 to 2% right apical pneumothorax. Progress note dated July 06, 2024. 44-year-old male status post fall navicular fracture, will need surgery, on Sunday of this next week. Clinically, the patient is stable. He is seen today in room 366. He is on room air. No IV fluids. His right arm is in a sling. He has been using his incentive spirometer. He has no prior history of lung disease. Labs: White blood cell count 7.6, hemoglobin 13.4, hematocrit 39.6, and a normal platelet count. Sodium 139, potassium 4.2, chlorides 108, CO2 26, BUN 11, creatinine 0.72. Glucose is 97. Chest x-ray does not revealed a very tiny pneumothorax seen on CT. Objective - Vital Signs Vital signs: Vital Signs Temp 97.7 F 07/06/24 09:35 Pulse 62 07/06/24 09:35 Resp 18 07/06/24 09:35 BP 119/74 07/06/24 09:35 Pulse Ox 97 07/06/24 09:35 FiO2 Intake & Output 07/05/24 07/06/24 07/06/24 18:59 06:59 18:59 Intake Total 360 Balance 360 Weight 73.3 kg Intake: Oral 360 Other: Voiding Method Toilet Toilet Toilet # Voids 2 2 - Exam No acute distress, oriented 3. HEENT examination is grossly unremarkable. Mucous membranes are moist. No oral lesions. Neck supple. Full range of motion. No adenopathy thyromegaly or neck vein distention. Cardiovascular examination reveals regular rhythm rate. S1-S2 normal. No S3 or S4. No discernible murmur noted. Lungs reveal clear breath sounds. Breath sounds are equal bilaterally. No adventitious lung sounds including wheezes rhonchi or crackles. Abdomen soft bowel sounds are heard. No masses or tenderness. Extremities are intact. No cyanosis clubbing or edema. Right upper extremity is in a sling. Skin is without rash or lesion. Neurologic examination is brief but nonfocal. - Labs CBC & Chem 7: 07/06/24 07:03 07/06/24 07:03 Labs: Abnormal Lab Results - Last 24 Hours (Table) 07/06/24 07/06/24 Range/Units 07:03 07:03 RBC 4.17 L (4.30-5.90) m/uL Chloride 108 H (98-107) mmol/L Total Protein 6.1 L (6.3-8.2) g/dL Assessment and Plan Assessment: S/P fall, with a fractured right clavicle, possible pulmonary contusion, and a very tiny right sided pneumothorax. No other major medical problems. Plan: Plan dated July 05, 2024. The patient apparently is going to have surgery, on his right clavicle, on Sunday. From the pulmonary standpoint, he is stable. He is a non-smoker. He denies any pulmonary issues. He is currently on room air. Saturations are excellent. The CT scan reveals a very tiny right apical pneumothorax. He is getting saline at 75 cc an hour. Labs, x-rays, and all medications are reviewed. We do recommend that the patient use the incentive spirometer, every hour while awake. We will continue to follow. Plan dated July 06, 2024. The patient is scheduled to have surgery on his right clavicle, on Sunday. The patient continues to practice with the incentive spirometer. The right upper extremity is in a sling. Labs, x-rays, medications are reviewed. The patient is stable, and should do well with surgery. He is not having any respiratory issues such as shortness of breath, cough, wheezing, chest tightness, or phlegm production. Time with Patient: Less than 30
--- NOTE | 2024-07-06 14:12 | P.PN ---
Subjective Progress Note Date: 07/06/24 Hospital course: Patient is a 44-year-old male with a past medical history of alcohol abuse. He presented to the emergency department on 07/04/2024 secondary to fall. Patient was reportedly working on a house putting up siding when he fell from ladder approximately 15 feet onto the ground. Patient reported landing on his right side injuring his right shoulder and chest and is unsure on whether or not he lost consciousness. Upon arrival to our facility, patient underwent evaluation in the emergency department. Vital signs upon arrival show blood pressure 156/94, heart rate 74, respiratory rate 20, temp 98.3 F, and SpO2 of 97% on room air. CT head negative for acute intracranial process. CT cervical spine showing no acute fracture or dislocation. Chest x-ray negative for acute cardiopulmonary process. Pelvis x-ray negative for acute process. X-ray right shoulder showing acute comminuted displaced fracture throughout the mid to distal portion of the right clavicle. Panoramic CT chest/abdomen/pelvis showing a minimal right-sided pneumothorax estimated at or under 1% with tiny subcentimeter focus of pulmonary contusion to right peripheral lung, acute comminuted displaced fractures of the right clavicle, negative for acute traumatic finding in abdomen or pelvis and no acute displaced fracture of the thoracic or lumbar spine. Labs completed and reviewed. CBC showing leukocytosis with WBC count of 14.0. BMP unremarkable. Liver profile normal findings. Serum alcohol level was less than 10 and urine drug screen was negative. Patient admitted under trauma services and we were consulted for medical management throughout hospitalization. Physical exam: Vital signs reviewed and stable. General: Nontoxic, no distress and appears stated age. Derm: Skin warm and dry, normal coloration for ethnicity. Patient with ecchymosis right lateral neck and ecchymosis mild swelling to right clavicular region of right shoulder Head: Atraumatic, normocephalic and symmetric. Eyes: EOM's intact, no lid lag, and anicteric sclera Mouth: no lip lesions, mucus membranes moist Cardiovascular: regular rate and rhythm with normal S1S2, no murmur, positive posterior tibial pulses bilaterally, and cap refill < 2 seconds. Lungs: Respirations even, regular, and unlabored on room air. Lungs CTA bila terally, no rhonchi, no rales, no wheezing, and no accessory muscle usage. Abdominal: soft, nontender to palpation, no guarding, no appreciable organomegaly Ext: No gross muscle atrophy, no edema, no contractures. Movement and sensation intact. Right arm in sling. Neuro: Speech clear, face symmetrical and CN II-XII grossly intact with no noted focal neuro deficits Psych: Alert and oriented to person, place, time, and situation. Appropriate and pleasant affect. Assessment and Plan of Care: Traumatic fall Right sided displaced clavicular fracture -Admitted under trauma surgery team -Orthopedic surgery consulted for comminuted displaced right clavicular fracture, discussed with orthopedic PA stating plans for surgical intervention on Sunday -Neurochecks every 4 hours secondary to unclear loss of consciousness -Symptomatic care and pain management Pulmonary contusion Small < 1% right sided pneumothorax -Consult placed to pulmonology. -Monitor pulse oximetry -Encourage use of incentive spirometer 10-15 times hourly while awake. -Repeat chest x-ray completed this morning, showing no acute cardiopulmonary process stating not revealing small pneumothorax reported on CT. Alcohol abuse, binge drinking behaviors -Order placed for monitoring of CIWA scores and patient to be medicated with Ativan 0.5 mg every 4 hours as needed for CIWA score of 4-5, Ativan 1 mg every 4 hours for CIWA score of 6-7, Ativan 2 mg every 3 hours CIWA score of 8-9, and Ativan 2 mg every 2 hours forr CIWA score of 10 or greater. -Continuous IV hydration. -Thiamine 100 mg daily, and Multivitamin daily, and Folate 1 mg daily -Seizure, fall, aspiration, and elopement precautions in place. -Urine drug screen was negative -Continued close monitoring of electrolytes and replace as needed. -Telemetry monitoring. Data and imaging reviewed: -Labs completed and reviewed. CBC unremarkable with WBC count of 7.0, hem oglobin of 13.4, platelet count of 267. BMP showing mild hyperchloremia with chloride of 108 otherwise normal findings. Blood glucose 97. Liver profile normal findings. -Vital signs reviewed. Blood pressure 119/74, heart rate 62, respiratory rate 18, temp 97.7 F, and SpO2 of 97% on room air.. -Repeat chest x-ray completed this morning, showing no acute cardiopulmonary process stating not revealing small pneumothorax reported on CT. Thank you for allowing us to participate in the care of this pleasant patient. Do not hesitate to contact us with questions. Someone can be reached from the [facility] hospitalist group all hours of the day at [phone] or via perfect serve. Patient was seen independently by Nurse Pracitioner. This document was prepared using [employer] dictation software. Please allow for errors in watch repair technician, while rare they do occur. Luis E Galvan VAMP PRESSER rendered care for this patient independently, reviewed the findings and plan as documented in the note above and agree with plan. I did not physically speak with or examine the patient on this date. Objective - Vital Signs Vital signs: Vital Signs Temp 98.1 F 07/06/24 04:00 Pulse 64 07/06/24 04:00 Resp 18 07/06/24 04:00 BP 121/74 07/06/24 04:00 Pulse Ox 98 07/06/24 04:00 FiO2 Intake & Output 07/05/24 07/06/24 07/06/24 18:59 06:59 18:59 Intake Total 360 Balance 360 Weight 73.3 kg Intake: Oral 360 Other: Voiding Method Toilet Toilet # Voids 2 2 - Labs CBC & Chem 7: 07/06/24 07:03 07/06/24 07:03 Labs: Abnormal Lab Results - Last 24 Hours (Table) 07/06/24 07/06/24 Range/Units 07:03 07:03 RBC 4.17 L (4.30-5.90) m/uL Chloride 108 H (98-107) mmol/L Total Protein 6.1 L (6.3-8.2) g/dL
[2024-07-06 21:21] VITALS: RESP 16
[2024-07-07 07:05] LABS: HGB 14.4 gm/dL (13.0-17.5); MCH 32.9 pg (25.0-35.0); MCHC 34.4 g/dL (31.0-37.0); MCV 95.7 fL (80.0-100.0); Mean Platelet Volume 6.7; Platelet Count 223 k/uL (150-450); RBC 4.39 m/uL (4.30-5.90); RDW 13.1 % (11.5-15.5)
[2024-07-07 07:23] LABS: ALT 20 U/L (4-49); AST 17 U/L (17-59); African American GFR (CKD) >90 (>60 ml/min/1.73 sqM); Albumin 4.1 g/dL (3.5-5.0); Alkaline Phosphatase 53 U/L (38-126); Anion Gap 9 mmol/L; Blood Urea Nitrogen 11 mg/dL (9-20); Calcium 9.3 mg/dL (8.4-10.2); Carbon Dioxide 25 mmol/L (22-30); Chloride 106 mmol/L (98-107); Glucose 98 mg/dL (74-99); Magnesium 2.1 mg/dL (1.6-2.3); Non-African American GFR(CKD) >90 (>60 ml/min/1.73 sqM); Potassium 4.7 mmol/L (3.5-5.1); Sodium 140 mmol/L (137-145); Total Bilirubin 0.8 mg/dL (0.2-1.3); Total Protein 6.3 g/dL (6.3-8.2)
[2024-07-07 08:28] VITALS: BP 136/85; PULSE 69; TEMP 97.8
--- NOTE | 2024-07-07 13:05 | P.PN ---
Subjective Progress Note Date: 07/07/24 Hospital course: Patient is a 44-year-old male with a past medical history of alcohol abuse. He presented to the emergency department on 07/04/2024 secondary to fall. Patient was reportedly working on a house putting up siding when he fell from ladder approximately 15 feet onto the ground. Patient reported landing on his right side injuring his right shoulder and chest and is unsure on whether or not he lost consciousness. Upon arrival to our facility, patient underwent evaluation in the emergency department. Vital signs upon arrival show blood pressure 156/94, heart rate 74, respiratory rate 20, temp 98.3 F, and SpO2 of 97% on room air. CT head negative for acute intracranial process. CT cervical spine showing no acute fracture or dislocation. Chest x-ray negative for acute cardiopulmonary process. Pelvis x-ray negative for acute process. X-ray right shoulder showing acute comminuted displaced fracture throughout the mid to distal portion of the right clavicle. Panoramic CT chest/abdomen/pelvis showing a minimal right-sided pneumothorax estimated at or under 1% with tiny subcentimeter focus of pulmonary contusion to right peripheral lung, acute comminuted displaced fractures of the right clavicle, negative for acute traumatic finding in abdomen or pelvis and no acute displaced fracture of the thoracic or lumbar spine. Labs completed and reviewed. CBC showing leukocytosis with WBC count of 14.0. BMP unremarkable. Liver profile normal findings. Serum alcohol level was less than 10 and urine drug screen was negative. Patient admitted under trauma services and we were consulted for medical management throughout hospitalization. Physical exam: Patient seen and fully evaluated at bedside this morning. He was ambulating in room visiting with friend at bedside. Patient states he would like to go home today and just return tomorrow for scheduled surgery so he can get a few things done around his house before surgical procedure. Patient reports pain is controlled and denies any other complaints at this time. Patient medically optimized for discharge but instructed that general surgery team will have to place actual discharge order if clearing him to go home. Vital signs reviewed and stable. General: Nontoxic, no distress and appears stated age. Derm: Skin warm and dry, normal coloration for ethnicity. Patient with ecchymosis right lateral neck and ecchymosis mild swelling to right clavicular region of right shoulder Head: Atraumatic, normocephalic and symmetric. Eyes: EOM's intact, no lid lag, and anicteric sclera Mouth: no lip lesions, mucus membranes moist Cardiovascular: regular rate and rhythm with normal S1S2, no murmur, positive posterior tibial pulses bilaterally, and cap refill < 2 seconds. Lungs: Respirations even, regular, and unlabored on room air. Lungs CTA bilaterally, no rhonchi, no rales, no wheezing, and no accessory muscle usage. Abdominal: soft, nontender to palpation, no guarding, no appreciable organomegaly Ext: No gross muscle atrophy, no edema, no contractures. Movement and sensation intact. Right arm in sling. Neuro: Speech clear, face symmetrical and CN II-XII grossly intact with no noted focal neuro deficits Psych: Alert and oriented to person, place, time, and situation. Appropriate and pleasant affect. Assessment and Plan of Care: Traumatic fall Right sided displaced clavicular fracture -Admitted under trauma surgery team -Orthopedic surgery consulted for comminuted displaced right clavicular fracture, discussed with orthopedic PA stating plans for surgical intervention on Sunday -Neurochecks every 4 hours secondary to unclear loss of consciousness -Symptomatic care and pain management Pulmonary contusion Small < 1% right sided pneumothorax -Consult placed to pulmonology. -Monitor pulse oximetry -Encourage use of incentive spirometer 10-15 times hourly while awake. -Repeat chest x-ray completed 07/06/2024, showing no acute cardiopulmonary process stating not revealing small pneumothorax reported on CT. Alcohol abuse, binge drinking behaviors -Order placed for monitoring of CIWA scores and patient to be medicated with Ativan 0.5 mg every 4 hours as needed for CIWA score of 4-5, Ativan 1 mg every 4 hours for CIWA score of 6-7, Ativan 2 mg every 3 hours CIWA score of 8-9, and Ativan 2 mg every 2 hours forr CIWA score of 10 or greater. -Continuous IV hydration. -Thiamine 100 mg daily, and Multivitamin daily, and Folate 1 mg daily -Seizure, fall, aspiration, and elopement precautions in place. -Urine drug screen was negative -Continued close monitoring of electrolytes and replace as needed. -Telemetry monitoring. Data and imaging reviewed: -Labs completed and reviewed. CBC unremarkable with WBC count 8.0, hemoglobin 14.4, and platelet count of 223. BMP normal findings. Magnesium 2.1. And liver profile unremarkable. -Vital signs reviewed. Blood pressure 136/85, heart rate 69, respiratory rate 16, temp 97.8 F, and SpO2 of 97% on room air. Patient is medically optimized for discharge once cleared by primary admitting general surgery team. Thank you for allowing us to participate in the care of this pleasant patient. Do not hesitate to contact us with questions. Someone can be reached from the [facility] hospitalist group all hours of the day at [phone] or via perfect serve. Patient was seen independently by Nurse Pracitioner. This document was prepared using [employer] dictation software. Please allow for errors in pin sticker, while rare they do occur. Luis E Galvan NP rendered care for this patient independently, reviewed the findings and plan as documented in the note above and agree with plan. I did not physically speak with or examine the patient on this date. Objective - Vital Signs Vital signs: Vital Signs Temp 97.8 F 07/07/24 08:25 Pulse 69 07/07/24 08:25 Resp 16 07/07/24 08:25 BP 136/85 07/07/24 08:25 Pulse Ox 97 07/07/24 08:25 FiO2 Intake & Output 07/06/24 07/07/24 07/07/24 18:59 06:59 18:59 Intake Total 540 1520 10 Balance 540 1520 10 Weight 72.8 kg Intake: IV 20 10 Invasive Line 1 20 10 Oral 540 1500 Other: Voiding Method Toilet Toilet # Voids 2 - Labs CBC & Chem 7: 07/07/24 06:35 07/07/24 06:35
--- NOTE | 2024-07-07 14:15 | P.DS ---
Providers Date of admission: 07/04/24 19:42 Expected date of discharge: 07/07/24 Attending physician: Casey Barba DO Consults: 07/04/24 19:26 Consult Physician Routine Consulting Provider: Franklyn Barraza Consult Reason/Comments: medical management Do you want consulting provider notified?: Already Contacted Consult Physician Routine Consulting Provider: Mauricio Ny Consult Reason/Comments: right clavicle fracture Do you want consulting provider notified?: Yes 07/05/24 09:10 Consult Physician Routine Consulting Provider: Fredrick Garcia Consult Reason/Comments: pulmonary contusion s/p truamatic fall Do you want consulting provider notified?: Yes [facility] Course: Discharge diagnosis 1. Fall 2. Traumatic right clavicle fracture secondary to fall 3. Traumatic trace right-sided pneumothorax secondary to fall Hospital course This is a 44-year-old male who presents as a level 2 trauma activation. Patient was on a ladder working on the roof when he slipped and fell backwards onto the grass. He landed on his right shoulder and right chest wall. Patient was able to drive himself to the ER. His fall was approximately 12 to 15 feet. Imaging revealed clavicle fracture and a small right sided pneumothorax. Patient evaluated by orthopedic service, pulmonary service and medicine service. Patient's arm was placed in a sling. Orthopedic services cleared him for discharge and he is scheduled for outpatient surgery for his clavicle fracture tomorrow. He has been cleared by pulmonary service for discharge. He is on room air. Patient's pain is controlled. He has been up and ambulating. He is stable for discharge. Please refer to chart for any further details. Physician Security Technician note has been reviewed by physician. Signing provider agrees with the documented findings, assessment, and plan of care. Patient Condition at Discharge: Stable Plan - Discharge Summary Discharge Rx Participant: No New Discharge Prescriptions: New HYDROcodone/APAP 7.5-325MG [Terril 7.5-325] 1 - 2 tab PO Q6HR PRN #32 tab PRN Reason: Pain Continue tadalafiL 5 mg PO QAM Discharge Medication List tadalafiL 5 mg PO QAM 07/04/24 [History] HYDROcodone/APAP 7.5-325MG [Terril 7.5-325] 1 - 2 tab PO Q6HR PRN #32 tab 07/07/24 [Rx] Follow up Appointment(s)/Referral(s): Manuel López MD [Primary Care Provider] - 1-2 days (Please call to messi gandhi follow up appoitment post surgery) Mauricio Ny DO [Doctor of Osteopathic Medicine] - 1-2 Days Patient Instructions/Handouts: Clavicle Fracture (GEN) Activity/Diet/Wound Care/Special Instructions: Maintain sling right upper extremity. Surgical scheduling will call you today to discuss surgery tomorrow Discharge/Stand Alone Forms: AA Meetings Dist & 24 - [facility], AA Meetings [place], [facility] Substance Abuse Facilities Discharge Disposition: HOME SELF-CARE
== END 2024-07-07 12:17 | disposition home or self-care (01) ==
LOC: EC 17:08 → 3SCARD 19:42
PROVIDERS: ADMIT Surgery; ATTEND Surgery
DX: S42.031A Displaced fracture of lateral end of right clavicle, initial encounter for closed fracture (principal); S27.0XXA Traumatic pneumothorax, initial encounter; S27.321A Contusion of lung, unilateral, initial encounter; W11.XXXA Fall on and from ladder, initial encounter; D72.829 Elevated white blood cell count, unspecified; F10.10 Alcohol abuse, uncomplicated; Z82.49 Family history of ischemic heart disease and other diseases of the circulatory system; Z79.899 Other long term (current) drug therapy
CPT/HCPCS: 96376 ×3; 96374; 96361; 99291; 36415; 93005; 86900; 86901; 80053 ×4; 83605; 83735 ×2; 85025 ×3; 85027; 85610; 85730; 86850; 80306; 80320; 72170; 73000; 73030; 71045; 71046 ×2; 72129; 72125; 72132; 70450; 71260; 74177; G0378 ×4; L0120; L3670; J1885 ×3; Q9967

== ENCOUNTER 2024-07-08 09:40 | Day surgery (SDC) | payer OTHER ==
[2024-07-07 14:37] VITALS: BMI 25.7
[2024-07-08] MEDS: SODIUM CHLORIDE 0.9% 1,000 ML IV ONE (11:20)
[2024-07-08] MEDS: ONDANSETRON 4 MG/2 ML VIAL IVP STA (11:35)
[2024-07-08] MEDS: DEXAMETHASONE SOD PHOSPHATE 4 MG/ML 1 ML VIAL IVP STA (11:36)
[2024-07-08] MEDS: fentaNYL (PF) 50 MCG/ML 2 ML AMP IVP STA (11:54)
[2024-07-08] MEDS: MIDAZOLAM 2 MG/2 ML VIAL IV STA (11:54)
[2024-07-08] MEDS ORDERED: DEXAMETHASONE SOD PHOSPHATE 4 MG/ML 1 ML VIAL ONE (12:34)
[2024-07-08] MEDS ORDERED: MIDAZOLAM 2 MG/2 ML VIAL ONE (12:34)
[2024-07-08] MEDS ORDERED: SUCCINYLCHOLINE CHLORIDE 200 MG/10 ML VIAL IV ONE (12:34)
[2024-07-08] MEDS ORDERED: fentaNYL (PF) 50 MCG/ML 2 ML AMP ONE (12:34)
[2024-07-08] MEDS ORDERED: KETAMINE HCL IN 0.9 % NACL 50 MG/5 ML SYRINGE ONE (12:34)
[2024-07-08] MEDS ORDERED: LIDOCAINE 4% LTA KIT (4 ML) TOPICAL ONE (12:34)
[2024-07-08] MEDS ORDERED: GLYCOPYRROLATE 0.2 MG/ML 2 ML VIAL ONE (12:34)
[2024-07-08] MEDS ORDERED: PHENYLEPHRINE 10 MG/ML VIAL ONE (12:34)
[2024-07-08] MEDS ORDERED: PROPOFOL 10 MG/ML 20 ML VIAL IV ONE (12:34)
[2024-07-08] MEDS ORDERED: ROPIVACAINE 5 MG/ML 30 ML VIAL ONE (12:34)
[2024-07-08] MEDS ORDERED: ROCURONIUM 10 MG/ML (5 ML VIAL) IV ONE (12:34)
[2024-07-08] MEDS ORDERED: LIDOCAINE 1% INJ 10MG/ML (20 ML MDV) ONE (12:34)
[2024-07-08] MEDS ORDERED: NEOSTIGMINE 1 MG/ML 10 ML VIAL ONE (12:34)
[2024-07-08] MEDS: SODIUM CHLORIDE 0.9% 100 ML with ceFAZolin 2,000 MG IV ONE (12:40)
[2024-07-08] MEDS: ceFAZolin 1,000 MG in SODIUM CHLORIDE 0.9% 1,000 ML IRRIGATION ONE (13:04)
[2024-07-08] MEDS: LACTATED RINGERS 1,000 ML IV ONE (13:26)
--- NOTE | 2024-07-08 14:20 | P.OP ---
Date of Procedure: 07/08/24 Preoperative Diagnosis: Displaced comminuted midshaft right clavicle fracture Postoperative Diagnosis: Displaced comminuted midshaft right clavicle fracture Procedure(s) Performed: Open reduction and internal fixation right clavicle Implants: [employer]hew clavicle plates and screws Anesthesia: MARY KATE Surgeon: Mauricio Ny Private Sector Executive #1: Leonor Arriola Estimated Blood Loss (ml): 40 Pathology: none sent Condition: stable Disposition: PACU Indications for Procedure: This is a 44-year-old gentleman that sustained a fall from a ladder. X-rays demonstrated displaced midshaft right clavicle fracture. Patient also sustained a small pneumothorax. After discussing the surgical nonsurgical treatment options with him at length, I recommended open reduction and fixation of his right clavicle. Informed consent was obtained. Operative Findings: The operative findings are consistent with a displaced comminuted fracture, right midshaft clavicle Description of Procedure: The patient was seen in the preoperative area, consent was reviewed, and operative site was marked with a skin marker. Patient was then brought to the operating room and given preoperative antibiotics intravenously. A general anesthetic was administered by the anesthesia department. The patient was then placed in a beachchair position with the bony prominences well-padded and the head secured. The shoulder was then prepped and draped in the usual sterile fashion. A universal timeout was then performed, which confirmed the patient's name, surgical site, ALLERGIES, and consent. A longitudinal incision was made over the right clavicle centered over the fracture site. Skin and subcutaneous tissues were sharply incised. The fracture was readily visualized subcutaneously. The fracture was then exposed. The fracture hematoma was evacuated. The fracture was found to be significantly displaced and comminuted with large fracture fragments. The fracture was reduced with difficulty. Utilizing K wires, ssuture, and bone reducing clamps. The plate was fixated proximally and distally. While the fracture was held reduced. Screws were then placed both proximally and distally. The fracture site. Utilizing both locking and nonlocking screws. Care was taken to avoid the neurovascular structures, and lung structures. After all the screws been placed. The shoulder was taken through range of motion and the fracture site was found to be stable. Shoulder was then irrigated. After thorough irrigation, DBM bone graft was used because of the significant comminution around the fracture site. The subcutaneous tissues were closed with 3-0 Vicryl then 3-0 monocryl. Exofin glue was placed on the skin. A sterile dressing was then applied, the patient was transported to the recovery room in an arm sling in stable condition. The computer assistant ISABEL Tomlinson was required due the complexity of surgery and the need for a skilled surgical device sales representative.
[2024-07-08] MEDS ORDERED: SENNOSIDES-DOCUSATE SODIUM 1 EACH TAB PO PRN (14:48)
[2024-07-08] MEDS ORDERED: HYDROmorphone 1 MG/ML 1 ML SYRINGE IVP PRN (14:48)
[2024-07-08] MEDS ORDERED: HYDROmorphone 0.5 MG/0.5 ML SYRINGE IVP PRN ×2 (14:48)
[2024-07-08] MEDS ORDERED: HYDROcodone/APAP 7.5-325MG 1 EACH TAB PO PRN ×2 (14:51)
[2024-07-08] MEDS: ONDANSETRON 4 MG/2 ML VIAL IVP PRN (15:19)
--- NOTE | 2024-07-08 15:30 | XR ---
EXAMINATION TYPE: XR shoulder limited RT DATE OF EXAM: 07/08/2024 3:25 PM COMPARISON: Right shoulder x-ray July 04, 2024 CLINICAL INDICATION: Male, 44 years old with history of post op, pain TECHNIQUE: Portable single view right shoulder shoulder is obtained. FINDINGS: There is new superior metallic plate through comminuted fracture of the right clavicle. Im proved alignment is seen after reduction and fixation IMPRESSION: As above. [facility], , 07/08/2024 3:28 PM
--- NOTE | 2024-07-08 17:49 | P.ANPRN ---
Procedure Note - Anesthesia - Nerve Block Performed Right Interscalene Single Time Out Performed: Yes (1113) Date of Procedure: 07/08/24 Location of Patient: PreOp Indication: Acute Post-Operative Pain, Analgesia, Dx/Pain Location (right shoulder), Requested by Surgeon Specifically requested for management of pain by DrAngelica: Mauricio Ny Sedation Type: Sedate with meaningful contact maintained Preparation: Sterile Prep Position: Supine Catheter: None Needle Types: Pajunk Needle Gauge: 21 Ultrasound used to visualize needle placement: Yes Ultrasound used to observe medication spread: Yes Injectate: 0.5% Ropivacaine (see comment for volume) (30 mL +4 mg of Decadron) Blood Aspirated: No Pain Paresthesia on Injection Noted: No Resistance on Injection: Normal Image Stored and Saved: Yes Events: Uneventful and Well Tolerated
--- NOTE | 2024-07-08 20:43 | P.CONS ---
History of Present Illness - Reason for Consult Consult date: 07/08/24 - History of Present Illness Patient is a 44-year-old male who presented after a fall and is status post ORIF of the right clavicle. Sound physicians consulted for medical management. Patient states his pain is controlled. He also states he is passing flatus and does not have any issues with bowel movements or voiding. Patient denies any shortness of breath, chest pain, abdominal pain, nausea, vomiting. No recent la bs. Patient states he drinks about 4 beers about 4 days a week. He denies any cigarette smoking or illicit drug use. Pertinent positives and negatives as discussed in HPI, a complete review of syst ems was performed and all other systems are negative. Patient seen and examined at bedside. Physical examination: Vital signs reviewed as heart rate 78, respiratory rate 16, blood pressure 116/71, O2 saturation 97% on room air. General: nontoxic, no distress, appears at stated age Derm: warm, dry, intact Head: atraumatic, normocephalic, symmetric Eyes: anicteric sclera Mouth: no lip lesion, mucus membranes moist Cardiovascular: S1 S2 reg, no murmur Lungs: CTA bilateral, no rhonchi, no rales, no accessory muscle use Abdominal: soft, non-tender to palpation, nondistended Extremities: No cyanosis, clubbing, or pedal edema. Neuro: Alert, Oriented to person, time and place, Gross neurological examination did not reveal any focal deficits. Cranial nerves II to XII grossly intact. Bilateral upper and lower extremity muscle strength intact and sensation intact. Psych: well appearing, appropriate affect Assessment/Plan: Right clavicular fracture status post ORIF Pain control per primary team DVT prophylaxis per primary team CODE STATUS: Full code Discussed with: Patient check cbc cmp in AM stable from medical stand point for discharge Thank you for this consultation we will continue to follow. I have seen and evaluated the patient today. I Discussed the case with the resident and agree with the resident's findings I edited the assessment and plan as necessary as documented in the resident's note. Past Medical History Past Medical History: No Reported History Additional Past Medical History / Comment(s): fx rt clavicle History of Any Multi-Drug Resistant Organisms: None Reported Past Surgical History: No Surgical Hx Reported, Orthopedic Surgery Additional Past Surgical History / Comment(s): Bone graph, 2 screws in finger, bilateral wrist surgeries years ago. Past Anesthesia/Blood Transfusion Reactions: No Reported Reaction Additional Past Anesthesia/Blood Transfusion Reaction / Comm: no hx blood transfusions Past Psychological History: ADD/ADHD Smoking Status: Never smoker Past Alcohol Use History: Heavy Additional Past Alcohol Use History / Comment(s): drinks about 25-30 beers per week Past Drug Use History: None Reported - Past Family History Father Family Medical History: Myocardial Infarction ([place]) Additional Family Medical History / Comment(s): Dad survived [place] @ age 46 Medications and Allergies Home Medications Medication Instructions Recorded Confirmed Type tadalafiL 5 mg PO QAM 07/04/24 07/08/24 History Ascorbic Acid [Vitamin C] 500 mg PO DAILY 07/07/24 07/08/24 History HYDROcodone/APAP 7.5-325MG [[place] 1 - 2 tab PO Q6HR PRN #32 tab 07/07/24 07/08/24 Rx 7.5-325] Multivitamins, Thera [Multivitamin 1 tab PO DAILY 07/07/24 07/08/24 History (formulary)] [place]-3/Dha/Epa/Fish Oil [Fish Oil 1 each PO DAILY 07/07/24 07/08/24 History 1,000 mg Softgel] Acetaminophen [Tylenol Extra 2 tab PO Q6HR PRN 07/08/24 07/08/24 History Strength] Allergies Allergy/AdvReac Type Severity Reaction Status Date / Time barley Allergy Unknown Verified 07/08/24 11:00 Physical Exam Vitals: Vital Signs Temp Pulse Pulse Resp BP Pulse Ox 07/08/24 19:00 78 16 116/71 97 07/08/24 18:30 73 16 109/57 97 07/08/24 18:00 56 L 16 100/56 97 07/08/24 17:30 66 16 111/69 97 07/08/24 17:00 70 16 101/59 97 07/08/24 16:30 54 L 16 101/58 97 07/08/24 16:15 50 L 16 104/57 96 07/08/24 16:00 59 L 16 102/56 95 07/08/24 15:45 54 L 16 105/55 95 07/08/24 15:30 73 16 105/55 95 07/08/24 15:15 57 L 16 112/55 95 07/08/24 15:00 78 16 127/71 94 L 07/08/24 14:47 98.3 F 88 20 138/74 98 07/08/24 12:09 66 16 110/63 95 07/08/24 11:05 97.6 F 58 L 16 133/70 97 Intake and Output 07/08/24 07/08/24 07/08/24 06:59 14:59 22:59 Intake Total 1201 550 Output Total 40 625 Balance 1161 -75 Intake: IV 1201 550 Output: Urine 625 Estimated Blood Loss 40 Other: Weight 72 kg 72 kg
[2024-07-09] MEDS: KETOROLAC 15 MG/ML 1 ML VIAL IVP PRN (01:07)
[2024-07-09 07:44] VITALS: BP 109/63; PULSE 61; RESP 18; TEMP 98
[2024-07-09 09:10] LABS: Basophils % (A) 0 %; Eosinophils # (A) 0.1 k/uL (0-0.7); Eosinophils % (A) 1 %; HGB 13.2 gm/dL (13.0-17.5); Lymphocytes # (A) 2.4 k/uL (1.0-4.8); Lymphocytes % (A) 22 %; MCH 31.4 pg (25.0-35.0); MCHC 33.1 g/dL (31.0-37.0); Mean Platelet Volume 6.9; Monocytes # (A) 0.9 k/uL (0-1.0); Monocytes % (A) 8 %; Neutrophils # (A) 7.4 k/uL (1.3-7.7); Neutrophils % (A) 67 %; Platelet Count 323 k/uL (150-450); RBC 4.21 m/uL (4.30-5.90); RDW 12.8 % (11.5-15.5)
[2024-07-09 09:43] LABS: African American GFR (CKD) >90 (>60 ml/min/1.73 sqM); Anion Gap 7 mmol/L; Blood Urea Nitrogen 20 mg/dL (9-20); Calcium 8.9 mg/dL (8.4-10.2); Carbon Dioxide 25 mmol/L (22-30); Chloride 106 mmol/L (98-107); Glucose 118 mg/dL (74-99); Non-African American GFR(CKD) >90 (>60 ml/min/1.73 sqM); Potassium 4.3 mmol/L (3.5-5.1); Sodium 138 mmol/L (137-145)
[2024-07-09] MEDS: ACETAMINOPHEN TAB 500 MG TAB PO PRN (10:09)
--- NOTE | 2024-07-09 10:48 | P.PN ---
Subjective Progress Note Date: 07/09/24 Subjective: Patient seen and examined at bedside. No acute events overnight. Pertinent positives and negatives as discussed above, a complete review of systems was performed and all other systems are negative. Vitals Signs Reviewed. General: Nontoxic, no distress, appears at stated age Derm: Warm, dry, dressing clean, dry, intact Head: Atraumatic, normocephalic, symmetric Eyes: EOMI, no lid lag, anicteric sclera Mouth: No lip lesion, mucus membranes moist Cardiovascular: S1S2 reg, no murmur Lungs: CTA bilateral, no rhonchi, no rales, no accessory muscle use Abdominal: Soft, nontender to palpation, no guarding, no appreciable organomegaly Ext: No gross muscle atrophy, no edema, no contractures, right shoulder in a sling Neuro: CN II-XI grossly intact, no focal neuro deficits Psych: Alert, oriented, appropriate affect Data Reviewed Today: Pertinent Labs: WBC 11, creatinine 0.83 Imaging: No new imaging Assessment and Plan: Active: Recent right clavicular fracture status post ORIF Leukocytosis, anticipated outcome of surgery -Pain control with oral Tylenol as needed, oral [place] as needed, IV Dilaudid as needed, IV Toradol as needed -Monitor for sedation with narcotics -On bowel regimen per orthopedic surgery -SCDs for DVT prophylaxis Patient is medically optimized for discharge Thank you for allowing us to participate in the care of this pleasant patient. Do not hesitate to contact us with questions. Someone can be reached from the [facility] hospitalist group all hours of the day at [phone] or via perfect serve. Objective - Vital Signs Vital signs: Vital Signs Temp 98.0 F 07/09/24 07:44 Pulse 61 07/09/24 07:44 Resp 18 07/09/24 07:44 BP 109/63 07/09/24 07:44 Pulse Ox 95 07/09/24 07:44 FiO2 Intake & Output 07/08/24 07/09/24 07/09/24 18:59 06:59 18:59 Intake Total 1201 4738 Output Total 665 Balance 536 4738 Weight 72 kg 72 kg Intake: IV 1201 550 Oral 4188 Output: Urine 625 Estimated Blood Loss 40 Other: Voiding Method Toilet # Voids 3 - Labs CBC & Chem 7: 07/09/24 08:05 07/09/24 08:05 Labs: Abnormal Lab Results - Last 24 Hours (Table) 07/09/24 07/09/24 Range/Units 08:05 08:05 WBC 11.0 H (3.8-10.6) k/uL RBC 4.21 L (4.30-5.90) m/uL Glucose 118 H (74-99) mg/dL
--- NOTE | 2024-07-09 14:58 | P.DS ---
Providers Expected date of discharge: 07/09/24 Attending physician: Mauricio Ny Consults: 07/08/24 14:48 Consult Physician Routine Consulting Provider: Milana Ellsworth Consult Reason/Comments: medical management Do you want consulting provider notified?: Yes Primary care physician: Elier López - Discharge Diagnosis(es) (1) Pulmonary contusion Status: Acute (2) Acute pneumothorax Status: Acute (3) Clavicle fracture Status: Acute (4) Fall Status: Acute Hospital Course: This is a 44-year-old male who is initially admitted through the emergency department over the weekend with injuries sustained during a fall of about 15 feet from a ladder. He was treated for a pulmonary contusion and small pneumothorax as well as a right sided clavicle fracture. He was discharged to home on 07/07/2024. He presented to the hospital on 07/08/2024 for open reduction internal fixation of the right clavicle. Postoperatively the patient is doing fairly well. He is having no new complaints or concerns. His vital signs are stable. The patient may be discharged to home today in stable condition. Please see med rec for accurate list of home medications. Patient Condition at Discharge: Fair Plan - Discharge Summary Discharge Rx Participant: No New Discharge Prescriptions: New Ketorolac [Toradol] 10 mg PO Q6HR #20 tab Continue Ascorbic Acid [Vitamin C] 500 mg PO DAILY tadalafiL 5 mg PO QAM [place]-3/Dha/Epa/Fish Oil [Fish Oil 1,000 mg Softgel] 1 each PO DAILY Multivitamins, Thera [Multivitamin (formulary)] 1 tab PO DAILY Acetaminophen [Tylenol Extra Strength] 2 tab PO Q6HR PRN PRN Reason: Pain No Action HYDROcodone/APAP 7.5-325MG [[place] 7.5-325] 1 - 2 tab PO Q6HR PRN #32 tab PRN Reason: Pain Discharge Medication List tadalafiL 5 mg PO QAM 07/04/24 [History] Ascorbic Acid [Vitamin C] 500 mg PO DAILY 07/07/24 [History] HYDROcodone/APAP 7.5-325MG [[place] 7.5-325] 1 - 2 tab PO Q6HR PRN #32 tab 07/07/24 [Rx] Multivitamins, Thera [Multivitamin (formulary)] 1 tab PO DAILY 07/07/24 [History] [place]-3/Dha/Epa/Fish Oil [Fish Oil 1,000 mg Softgel] 1 each PO DAILY 07/07/24 [History] Acetaminophen [Tylenol Extra Strength] 2 tab PO Q6HR PRN 07/08/24 [History] Ketorolac [Toradol] 10 mg PO Q6HR #20 tab 07/09/24 [Rx] Follow up Appointment(s)/Referral(s): Manuel López MD [Primary Care Provider] - 07/22/24 2:40 pm Mauricio Ny DO [Doctor of Osteopathic Medicine] - 07/23/24 3:20 pm Patient Instructions/Handouts: *Surgery [facility] - Managing Your Pain After Surgery Without Opioids Activity/Diet/Wound Care/Special Instructions: Maintain sling to the right upper extremity. Nonweightbearing to the right upper extremity. Ice as needed for swelling. Dressing may be removed in 7 days. Then change dressing twice daily until follow up. May shower with initial dressing intact and after removal. If dressing become saturated, please remove. Please follow-up with [facility] and call with any questions or concerns, . Discharge Disposition: HOME SELF-CARE
== END 2024-07-09 13:37 | disposition home or self-care (01) ==
LOC: OR 09:40 → 4SSUR 14:35 → OR 07-09 13:37
PROVIDERS: ATTEND Orthopaedic Surgery
DX: S42.021A Displaced fracture of shaft of right clavicle, initial encounter for closed fracture (principal); J93.9 Pneumothorax, unspecified; W11.XXXA Fall on and from ladder, initial encounter
CPT/HCPCS: 64415; 80048; 85025; 73020; 23515; C1713 ×2; J2250; J1100; J0690 ×3; J2405; J3010; J1885